=== PATIENT | female | born 1970 | race Caucasian/White ===

== ENCOUNTER → 2019-03-04 09:28 | Outpatient (CLI) | payer OTHER, SELFPAY ==
[2019-03-04 10:20] LABS: D Dimer < 200 ng/mL (<230)
[2019-03-04 10:21] LABS: Alanine Aminotransferase 26 IU/L (9-52); Albumin 4.7 g/dL (3.5-5.0); Albumin Globulin Ratio 1.5 (1.0-2.8); Alkaline Phosphatase 116 U/L (38-126); Aspartate Aminotransferase 26 IU/L (14-36); BUN Creatinine Ratio 15.7 (6-22); Bilirubin Total 0.6 mg/dL (0.2-1.3); Blood Urea Nitrogen 11 mg/dL (7-17); Calcium 9.8 mg/dL (8.4-10.2); Carbon Dioxide 27 mmol/L (22-32); Chloride 102 mmol/L (98-107); Estimated Glomerular Filt Rate > 60.0 mL/min (>60); Globulin 3.1 g/dL (1.7-4.1); Glucose 82 mg/dL (70-100); HEMOLYSIS < 15 (0-50); Potassium 4.1 mmol/L (3.4-5.1); Sodium 140 mmol/L (137-145); Total Protein 7.8 g/dL (6.3-8.2)
[2019-03-04 10:32] LABS: Troponin I < 0.012 ng/mL (0.01-0.034)
== END ==
PROVIDERS: PCP Internal Medicine; Visit Provider Physician Assistant
DX: M79.605 Pain in left leg (principal)
CPT/HCPCS: 36415; 80053; 84484; 85379

== ENCOUNTER → 2019-04-14 16:19 | Outpatient (ROUT) | payer OTHER, SELFPAY ==
[2019-04-14 16:26] LABS: Add Manual Diff / Slide Review NO; Basophils Absolute Auto 0 /uL (0-100); Basophils Percent Auto 0.9 % (0-2); Eosinophils Absolute Auto 200 /uL (0-450); Eosinophils Percent Auto 4.5 % (2-4); Hematocrit 41.5 % (36-46); Hemoglobin 14.4 g/dL (12.0-16.0); Lymphocytes Absolute Auto 1100 /uL (1100-4500); Lymphocytes Percent Auto 24.1 % (25-40); Mean Corpuscular HGB Conc 34.6 % (30-36); Mean Corpuscular Hemoglobin 30.9 PG (26-34); Mean Corpuscular Volume 89.3 fL (80-100); Monocytes Absolute Auto 200 /uL (0-900); Neutrophils Absolute Auto 3100 /uL (1500-7000); Neutrophils Percent Auto 65.5 % (50-75); Platelet Count 319 X10^3/uL (150-400); Red Blood Cell Count 4.65 X10^6/uL (4.0-5.2); Red Cell Distribution Width 13.2 % (11.6-14.8); White Blood Cell Count 4.7 X10^3/uL (4.5-11.0)
[2019-04-14 16:40] LABS: Alanine Aminotransferase 23 IU/L (9-52); Albumin 4.7 g/dL (3.5-5.0); Albumin Globulin Ratio 1.6 (1.0-2.8); Alkaline Phosphatase 108 U/L (38-126); Aspartate Aminotransferase 25 IU/L (14-36); BUN Creatinine Ratio 15.7 (6-22); Bilirubin Total 0.6 mg/dL (0.2-1.3); Blood Urea Nitrogen 11 mg/dL (7-17); Calcium 9.8 mg/dL (8.4-10.2); Carbon Dioxide 29 mmol/L (22-32); Chloride 99 mmol/L (98-107); Cholesterol 263 mg/dL (140-199); Estimated Glomerular Filt Rate > 60.0 mL/min (>60); Globulin 2.9 g/dL (1.7-4.1); Glucose 86 mg/dL (70-100); HDL Cholesterol 83 mg/dL (40-60); HEMOLYSIS < 15 (0-50); LDL Cholesterol Calculated 162 mg/dL (<100); Potassium 3.8 mmol/L (3.4-5.1); Sodium 137 mmol/L (137-145); Total Protein 7.6 g/dL (6.3-8.2); Triglycerides 92 mg/dL (35-150)
[2019-04-14 16:56] LABS: Vitamin D 25 Hydroxy (D3) 31.8 ng/mL (30.0-100.0)
[2019-04-14 17:10] LABS: TSH w/ Reflex to FT4 0.93 uIU/mL (0.47-4.68)
== END ==
PROVIDERS: PCP Internal Medicine; Visit Provider Internal Medicine
DX: Z13.21 Encounter for screening for nutritional disorder (principal); Z13.220 Encounter for screening for lipoid disorders; G43.709 Chronic migraine without aura, not intractable, without status migrainosus; F90.9 Attention-deficit hyperactivity disorder, unspecified type
CPT/HCPCS: 80053; 80061; 82306; 84443; 85025

== ENCOUNTER → 2019-05-05 18:08 | Outpatient (CLI) | payer OTHER, SELFPAY ==
--- NOTE | 2019-05-05 18:11 | DI.MG.S_ITS ---
BILATERAL DIGITAL SCREENING MAMMOGRAM 3D/2D WITH CAD: 05/05/2019 CLINICAL: Routine screening. Family history of breast cancer. Comparison is made to exams dated: 06/03/2013 mammogram, 06/02/2014 mammogram, and 06/18/2015 mammogram - [facility]. There are scattered fibroglandular elements in both breasts. Current study was also evaluated with a Computer Aided Detection (CAD) system. No significant masses, calcifications, or other findings are seen in either breast. There has been no significant interval change. IMPRESSION: NEGATIVE There is no mammographic evidence of malignancy. A 1 year screening mammogram is recommended. This exam was interpreted at Station ID: [id number]. NOTE: For mammograms, a report in lay terms will be sent to the patient. Approximately 15% of breast malignancies will not be visualized mammographically. In the management of a palpable breast mass, a negative mammogram must not discourage biopsy of a clinically suspicious lesion. Electronically Signed By: Angel corrales/zulema:05/05/2019 22:19:39 letter sent: Normal Exam ACR BI-RADS Category 1: Negative 3341F
== END ==
PROVIDERS: PCP Internal Medicine; Visit Provider Internal Medicine
DX: Z12.31 Encounter for screening mammogram for malignant neoplasm of breast (principal); Z80.3 Family history of malignant neoplasm of breast
CPT/HCPCS: 77063; 77067

== ENCOUNTER → 2019-06-16 11:55 | Outpatient (CLI) | payer OTHER, SELFPAY | PROVIDERS: PCP Internal Medicine; Visit Provider Otolaryngology | DX: Z01.818 Encounter for other preprocedural examination (principal) | CPT/HCPCS: 93005 ==

== ENCOUNTER → 2019-10-01 10:03 | Outpatient (CLI) | payer OTHER, SELFPAY ==
[2019-10-03 11:07] LABS: COVID19 Sendout Not Detected (Not Detected)
== END ==
PROVIDERS: PCP Internal Medicine; Visit Provider Physician Assistant
DX: R05 Cough (principal)
CPT/HCPCS: 87635

== ENCOUNTER → 2020-06-30 09:10 | Outpatient (CLI) | payer OTHER, MEDICAID, SELFPAY ==
--- NOTE | 2020-06-30 | DI.MG.S_ITS ---
BILATERAL DIGITAL SCREENING MAMMOGRAM 3D/2D WITH CAD: 06/30/2020 CLINICAL: Routine screening. Family history of breast cancer. Comparison is made to exams dated: 05/05/2019 mammogram - [facility], 06/18/2015 mammogram, and 06/02/2014 mammogram - [facility]. There are scattered fibroglandular elements in both breasts. Current study was also evaluated with a Computer Aided Detection (CAD) system. No significant masses, calcifications, or other findings are seen in either breast. There has been no significant interval change. IMPRESSION: NEGATIVE There is no mammographic evidence of malignancy. A 1 year screening mammogram is recommended. This exam was interpreted at Station ID: [id number]. NOTE: For mammograms, a report in lay terms will be sent to the patient. Approximately 15% of breast malignancies will not be visualized mammographically. In the management of a palpable breast mass, a negative mammogram must not discourage biopsy of a clinically suspicious lesion. Electronically Signed By: Duke north/zulema:07/02/2020 09:04:32 letter sent: Normal Exam ACR BI-RADS Category 1: Negative 3341F
== END ==
PROVIDERS: PCP Internal Medicine; Referring Provider Internal Medicine; Visit Provider Internal Medicine
DX: Z12.31 Encounter for screening mammogram for malignant neoplasm of breast (principal); Z80.3 Family history of malignant neoplasm of breast
CPT/HCPCS: 77063; 77067

== ENCOUNTER → 2021-02-11 14:25 | Outpatient (CLI) | payer OTHER, MEDICAID, SELFPAY ==
[2021-02-11 17:31] LABS: COVID19 -Nasal RAPID Negative (Negative)
== END ==
PROVIDERS: PCP Internal Medicine; Visit Provider Physician Assistant
DX: Z20.822 Contact with and (suspected) exposure to COVID-19 (principal)
CPT/HCPCS: 87635

== ENCOUNTER 2021-02-12 07:59 | Day surgery (SDC) | payer OTHER, MEDICAID, SELFPAY ==
--- NOTE | 2021-02-12 | PATH_ITS ---
[facility] Accession Number: [id number] . 01 Material submitted: . colon - EROSION @ 30 CM COLON . 01 Clinical history: . SDC . 02 Diagnosis: Colon, Erosion At 30 CM, Biopsy: Colonic mucosa with denuded surface epithelium and mild active inflammation with focal features suggestive of ischemia-type change. Please see comment. Negative for granulomas, dysplasia and malignancy. [facility] 02/15/2021 1355 Local . 02 Comment: The differential diagnosis for ischemia-type changes includes infection (i.e., enterohemorrhagic E. coli, C. difficile, etc.), true vascular ischemia, and ischemia due to trauma/prolapse. . 02 Electronically signed: . Justina Barkley MD, Pathologist NPI- [id number] . 01 Gross description: . EROSION @ 30 CM COLON: Received in formalin is 1 fragment(s) of siddiqui, soft tissue measuring 0.2 x 0.2 x 0.2 cm submitted entirely in 1 cassette(s) /ADELAIDE 02/13/2021 0653 Local . 02 Pathologist provided ICD-10: Z12.11 . 02 CPT . 663587 Performed at: 01 [facility] Cyt[facility] [address], [place], [place] [id number] MD Baldo Jaime MD Phone: [phone] Performed at: 02 [facility] [address] [place], [place] [id number] MD Justina Barkley MD Phone: [phone]
[2021-02-12 08:29] VITALS: BP 108/70; PULSE 78; RESP 18; TEMP 36.8; O2SAT 99; BMI 33.7
[2021-02-12] MEDS: SODIUM CHLORIDE 0.9% 1,000 ML 125 ML IV (08:42)
[2021-02-12] MEDS: fentaNYL 250 MCG/5 ML INJ IV (08:51)
[2021-02-12] MEDS: MIDAZOLAM 5 MG/5 ML VIAL IV (08:51)
--- NOTE | 2021-02-12 08:56 | PM.HP.1 ---
History of Present Illness History of Present Illness Date Patient Seen: 02/12/21 Time Patient Seen: 08:56 Chief complaint: WVC Patient History Comment: History of endometriosis abdominal hernia surgery total abdominal hysterectomy and laparoscopic treatment for endometriosis Family & Social History Tobacco & Substance use: Smoking Status Never smoker alcohol intake current alcohol intake frequency holiday/special occasion Substance Use Type does not use Meds Home Medications and Allergies Home Medications Medication Instructions Recorded Confirmed Type aripiprazole [Abilify] 2 mg PO 03/04/19 03/04/19 History estradiol 1 mg PO 03/04/19 03/04/19 History fexofenadine [Desi Allergy] PO 03/04/19 03/04/19 History fluoxetine 80 mg PO 03/04/19 03/04/19 History ibuprofen [Advil] PO 03/04/19 03/04/19 History indomethacin PO 03/04/19 03/04/19 History ketorolac [Toradol] 15 mg PO 03/04/19 03/04/19 History lamotrigine 200 mg PO 03/04/19 03/04/19 History lorazepam 0.5 mg PO PRN 03/04/19 03/04/19 History methylphenidate HCl [Concerta] PO 03/04/19 03/04/19 History omeprazole [Prilosec] 20 mg PO 03/04/19 03/04/19 History promethazine PO 03/04/19 03/04/19 History pseudoephedrine HCl [Sudafed 12 PO 03/04/19 03/04/19 History Hour] tizanidine 8 mg PO PRN 03/04/19 03/04/19 History Adderall XR 30 mg PO DAILY 02/12/21 02/12/21 History Allergies Allergy/AdvReac Type Severity Reaction Status Date / Time codeine Allergy Intermediate rash, Verified 02/12/21 08:12 nausea Penicillins Allergy Mild rash Verified 02/12/21 08:12 Sulfa (Sulfonamide Allergy Mild rash Verified 02/12/21 08:12 Antibiotics) Review of Systems Review of Systems ROS: Yes All systems reviewed with the patient and are negative except as otherwise documented Exam Vital Signs (past 8 hours): - 02/12/21 08:29 Temperature 98.2 F Pulse Rate 78 Respiratory Rate 18 Blood Pressure 108/70 Pulse Oximetry 99 Oxygen Delivery Method Room Air Const General: cooperative and comfortable Orientation: alert [facility] Head: normocephalic Ears: external ears normal Nose: external nose normal Face and sinus: normal facial exam Mouth: oral mucosae normal Eyes General: appearance normal, both eyes and all related structures Neck Neck: normal visual inspection Chest Chest: normal inspection of the chest Resp Effort & Inspection: normal respiratory effort Auscultation: clear to auscultation bilaterally Cardio Rate: regular rate Rhythm: regular rhythm Heart Sounds: no murmurs GI Inspection: normal to inspection Palpation: soft and No tender Auscultation: normal bowel sounds Skin General: no rashes or lesions noted and No jaundice Neuro General: patient alert and moves all extremities Cognition: normal cognition Speech: speech normal Extrem General: no pedal edema Psych Appearance: grossly normal Assessment & Plan Assessment & Plan narrative: Indicated for colon cancer screening. No family history of colon cancer. Colonoscopy is planned for today.
--- NOTE | 2021-02-12 08:58 | PM.PREOP ---
Pre-operative Note COVID-19 COVID-19 status: Negative Result date/Date tested (Pos, Neg/Pending): 02/11/21 Interval Note History & Physical reviewed/Exam performed by Physician: Yes Changes to H&P: No ASA Class (for procedural sedation): II
--- NOTE | 2021-02-12 09:32 | PM.OP.ENDO ---
Operative Date/Time/Diagnoses Date of procedure: 02/12/21 Time of procedure: 09:32 Pre-op diagnosis: Colon cancer screening Post-op diagnosis: same Procedure & Clinicians Study performed: Colonoscopy with biopsy Same procedure as scheduled: Yes Indications: Colon cancer screening Surgeon: Deepak Baez Procedure Notes SCOAP/Timeout: Done Procedure in detail: After the risks and benefits were explained, written and verbal informed consent was obtained. The patient was brought into the procedure room and placed into the left lateral decubitus position. Conscious sedation medication was applied as per nursing documentation. Digital rectal examination was accomplished. The scope was introduced into the patient and advanced under direct visualization to the cecum as identified by the appendiceal orifice and ileocecal valve. The scope was slowly withdrawn to carefully examine the mucosa for any defects or lesions. Comprehensive imaging was accomplished throughout the rectum including the dentate line. The colon was decompressed, the scope was then removed from the patient who tolerated the procedure well. Bowel prep adequate Sedation 7 mg Versed 175 mcg fentanyl Pediatric colonoscope Scope withdrawal time: 9 minutes Sedation minutes: 30 Complications: none Impression: The patient had a lengthy redundant somewhat tortuous colon. The scope had a tendency to loop. Abdominal pressure was required. No significant polyps mass lesions identified throughout. There was a small erosive change at around 30 cm from the anal verge and this was addressed with cold forceps. Endoscopic diagnosis 1. Redundant colon 2. Sigmoid colon erosion Post-procedure Plan for aftercare: 1. Await histopathology 2. Repeat colonoscopy will likely be suggested for 10 years time. Disposition: PACU
[2021-02-12 09:35] VITALS: BP 132/66; PULSE 74; RESP 17; TEMP 36.2; O2SAT 100
[2021-02-12 09:40] VITALS: BP 118/66; PULSE 62; RESP 16; O2SAT 100
[2021-02-12 09:45] VITALS: BP 116/77; PULSE 60; RESP 13; O2SAT 99
[2021-02-12 10:04] VITALS: BP 120/68; PULSE 70; RESP 13; O2SAT 100
== END 2021-02-12 10:33 | disposition home or self-care (01) ==
PROVIDERS: PCP Internal Medicine; Referring Provider Internal Medicine Gastroenterology; Visit Provider Internal Medicine Gastroenterology
PROC: 0DJD8ZZ Inspection of Lower Intestinal Tract, Via Natural or Artificial Opening Endoscopic (ICD-10-PCS; CPT 45378; principal; 2021-02-12 09:00)
DX: Z12.11 Encounter for screening for malignant neoplasm of colon (principal); K52.89 Other specified noninfective gastroenteritis and colitis
CPT/HCPCS: 45380; J2250; J3010

== ENCOUNTER → 2021-05-13 12:02 | Outpatient (CLI) | payer OTHER, MEDICAID, SELFPAY ==
[2021-05-13 15:12] LABS: Urine N gonorrhoeae NOT DETECTED
[2021-05-13 15:25] LABS: Urine Chlamydia NOT DETECTED
== END ==
PROVIDERS: PCP Internal Medicine; Visit Provider Physician Assistant
DX: R30.9 Painful micturition, unspecified (principal)
CPT/HCPCS: 87210; 87491; 87591

== ENCOUNTER → 2021-07-26 13:17 | Outpatient (CLI) | payer OTHER, SELFPAY ==
--- NOTE | 2021-07-26 | DI.MG.S_ITS ---
BILATERAL DIGITAL SCREENING MAMMOGRAM 3D/2D WITH CAD: 07/26/2021 CLINICAL: Routine screening. Family history of breast cancer. Comparison is made to exams dated: 06/30/2020 mammogram, 05/05/2019 mammogram - [facility], and 06/18/2015 mammogram - [facility]. There are scattered fibroglandular elements in both breasts. Current study was also evaluated with a Computer Aided Detection (CAD) system. No significant masses, calcifications, or other findings are seen in either breast. There has been no significant interval change. IMPRESSION: NEGATIVE There is no mammographic evidence of malignancy. A 1 year screening mammogram is recommended. This exam was interpreted at Station ID: [id number]. NOTE: For mammograms, a report in lay terms will be sent to the patient. Approximately 15% of breast malignancies will not be visualized mammographically. In the management of a palpable breast mass, a negative mammogram must not discourage biopsy of a clinically suspicious lesion. Electronically Signed By: Anya duran/zulema:07/26/2021 16:03:34 letter sent: Normal Exam ACR BI-RADS Category 1: Negative 3341F
== END ==
PROVIDERS: PCP Internal Medicine; Referring Provider Internal Medicine; Visit Provider Internal Medicine
DX: Z12.31 Encounter for screening mammogram for malignant neoplasm of breast (principal); Z80.3 Family history of malignant neoplasm of breast
CPT/HCPCS: 77063; 77067

== ENCOUNTER → 2022-01-13 06:40 | Outpatient (CLI) | payer OTHER, SELFPAY ==
--- NOTE | 2022-01-13 07:50 | DI.MRI.S_ITS ---
PROCEDURE: MR CERVICAL SPINE WO CON INDICATIONS: DDD/CERVICAL RADICULOPATHY TECHNIQUE: Noncontrast sagittal T1 spin echo and T2 fast spin echo, sagittal STIR, foraminal oblique sagittal T2 fast spin echo, and axial gradient echo or T2 fast spin echo through the cervical spine. COMPARISON: None. FINDINGS: Image quality: Degraded by susceptibility artifact related to cervical spine metallic fixation hardware. Alignment and Curvature: There is normal bony alignment. There is mild reversal normal cervical spine curvature. Bones: Postsurgical changes compatible C4-C5 and C6-C7 ACDF. Marrow demonstrates normal overall signal. Spinal Cord: Visualized spinal cord has normal size and signal. No cerebellar tonsillar herniation. Paraspinous Soft Tissues: No paravertebral masses. Prevertebral soft tissues are normal in thickness. C2-C3: Loss of disc signal. No central stenosis. No neural foraminal narrowing. No neural compression. C3-C4: Loss of disc signal. Mild, diffuse disc bulge. Mild right facet hypertrophy. No central stenosis. Mild right neural foraminal narrowing. No neural compression. C4-C5: Status post discectomy and fusion. No central stenosis. No neural foraminal narrowing. No neural compression. C5-C6: Loss of disc signal and height. Mild, diffuse disc bulge. Mild narrowing of the central canal. Moderate left uncovertebral joint hypertrophy. Mild to moderate left neural foraminal narrowing. No neural compression. C6-C7: Status post discectomy and fusion. Posterior endplate osteophytosis. Mild narrowing of the central canal. No neural foraminal narrowing. No neural compression. C7-T1: Normal appearance. IMPRESSION: 1. C4-C5 and C6-C7 ACDF. 2. Multilevel degenerative disc disease. 3. No severe central canal narrowing. 4. No severe neural foraminal narrowing. 5. No neural compression. Dictated by: Fartun Mcbride MD, PhD on 01/13/2022 at 13:55 Approved by: Fartun Mcbride MD, PhD on 01/13/2022 at 14:22
== END ==
PROVIDERS: PCP Internal Medicine; Referring Provider Family Medicine; Visit Provider Family Medicine
DX: M50.11 Cervical disc disorder with radiculopathy, high cervical region (principal); Z98.1 Arthrodesis status
CPT/HCPCS: 72141

== ENCOUNTER → 2022-08-12 16:54 | Outpatient (CLI) | payer OTHER, SELFPAY ==
--- NOTE | 2022-08-12 | DI.MG.S_ITS ---
BILATERAL DIGITAL SCREENING MAMMOGRAM 3D/2D WITH CAD: 08/12/2022 CLINICAL: Routine screening. Family history of breast cancer. Comparison is made to exams dated: 07/26/2021 mammogram, 06/30/2020 mammogram, and 05/05/2019 mammogram - [facility]. There are scattered areas of fibroglandular density in both breasts (category b / 25%-50% glandular tissue). Current study was also evaluated with a Computer Aided Detection (CAD) system. No significant masses, calcifications, or other findings are seen in either breast. There has been no significant interval change. IMPRESSION: NEGATIVE There is no mammographic evidence of malignancy. A 1 year screening mammogram is recommended. This exam was interpreted at Station ID: [id number]. NOTE: For mammograms, a report in lay terms will be sent to the patient. Approximately 15% of breast malignancies will not be visualized mammographically. In the management of a palpable breast mass, a negative mammogram must not discourage biopsy of a clinically suspicious lesion. Electronically Signed By: Angel corrales/zulema:08/13/2022 10:25:37 letter sent: Normal Exam ACR BI-RADS Category 1: Negative 3341F
== END ==
PROVIDERS: PCP Internal Medicine; Referring Provider Internal Medicine; Visit Provider Internal Medicine
DX: Z12.31 Encounter for screening mammogram for malignant neoplasm of breast (principal); Z80.3 Family history of malignant neoplasm of breast
CPT/HCPCS: 77063; 77067

== ENCOUNTER 2022-09-14 12:09 | Observation (INO) | payer OTHER, SELFPAY ==
[2022-09-14] VITALS (19 sets, daily range): BP systolic 138–180; BP diastolic 66–93; PULSE 64–99; RESP 14–24; TEMP 36.3–37.1; O2SAT 95–100; BMI 36.2
[2022-09-14 14:50] LABS: Add Manual Diff / Slide Review NO; Basophils Absolute Auto 100 /uL (0-100); Eosinophils Absolute Auto 100 /uL (0-450); Eosinophils Percent Auto 2.3 % (2-4); Hematocrit 41.4 % (36-46); Hemoglobin 14.4 g/dL (12.0-16.0); Lymphocytes Absolute Auto 1600 /uL (1100-4500); Mean Corpuscular HGB Conc 34.8 % (30-36); Mean Corpuscular Hemoglobin 30.7 PG (26-34); Monocytes Absolute Auto 300 /uL (0-900); Monocytes Percent Auto 5.5 % (3-14); Neutrophils Absolute Auto 3800 /uL (1500-7000); Neutrophils Percent Auto 64.2 % (50-75); Platelet Count 290 X10^3/uL (150-400); Red Cell Distribution Width 13.1 % (11.6-14.8)
--- NOTE | 2022-09-14 15:06 | DI.US.S_ITS ---
PROCEDURE: US ABDOMEN LIMITED INDICATIONS: RUQ PAIN TECHNIQUE: Real-time focused scanning was performed of the abdomen, with image documentation. COMPARISON: [facility], CT, CT ABDOMEN PELVIS W CON, 09/14/2022, 16:00. FINDINGS: The gallbladder is nearly filled with stones, which do not appear mobile. The gallbladder wall is not thickened. No pericholecystic fluid is seen. There is a positive sonographic Sethi sign. Minimal biliary dilatation is seen, measuring up to 7.5 mm. The liver is normal in size and demonstrates no suspicious lesions. No significant pancreatic abnormality is seen on these images. IMPRESSION: Suspicion for cholecystitis, with numerous gallstones and a positive sonographic Sethi sign. Minimal biliary dilatation is seen, 7.5 mm. Dictated by: Waqar Adan M.D. on 09/14/2022 at 15:58 Approved by: Waqar Adan M.D. on 09/14/2022 at 15:59
--- NOTE | 2022-09-14 15:07 | ED.ABDPAIN ---
HPI - Abdominal Pain <STEFFI Davies - Last Filed: 09/14/22 18:45> General Chief Complaint: Abdominal Pain Stated Complaint: UPPER ABD PAIN Time Seen by Provider: 09/14/22 14:58 Mode of arrival: Family Vehicle History of Present Illness HPI narrative: This is a 52 year female presents to the emergency department with worsening right upper quadrant pain over the last 3 days. States that she is concerned about cholecystitis, has not had abdominal surgery in the past but reports 3 days of worsening right upper quadrant pain, she was seen at the [facility] 2 days ago, her lab work reportedly revealed elevated liver enzymes, an abdominal ultrasound was ordered but not completed yet. Patient denies fever and chills, states that 2 days ago she had nausea vomiting, has not had a bowel movement in 3 days. Related Data Home Medications Medication Instructions Recorded Confirmed aripiprazole [Abilify] 2 mg PO QAM 03/04/19 09/14/22 estradiol 1 mg PO QAM 03/04/19 09/14/22 indomethacin PO 03/04/19 09/02/22 ketorolac [Toradol] 15 mg PO PRN Migraine Headache 03/04/19 09/02/22 lamotrigine 200 mg PO QPM 03/04/19 09/02/22 lorazepam 0.5 mg PO PRN Anxiety 03/04/19 09/02/22 methylphenidate HCl [Concerta] 35 mg PO QAM 03/04/19 09/14/22 omeprazole [Prilosec] 20 mg PO QAM 03/04/19 09/14/22 fluoxetine 60 mg PO QAM 09/02/22 09/14/22 methylphenidate HCl 10 mg tablet 10 mg PO DAILY 09/02/22 09/02/22 (Ritalin) tizanidine 8 mg PO QPM Sleep 09/02/22 09/14/22 indomethacin 25 mg capsule 25 mg PO PRN PRN Migraine Headache 09/14/22 09/14/22 Allergies Allergy/AdvReac Type Severity Reaction Status Date / Time codeine Allergy Intermediate rash, Verified 09/14/22 12:24 nausea Penicillins Allergy Mild rash Verified 09/14/22 12:24 Sulfa (Sulfonamide Allergy Mild rash Verified 09/14/22 12:24 Antibiotics) Review of Systems <STEFFI Davies - Last Filed: 09/14/22 18:45> Review of Systems ROS Unobtainable: All systems reviewed & are unremarkable except as noted in HPI and below Patient History <STEFFI Davies - Last Filed: 09/14/22 18:45> Medical History Vaginal irritation Surgical History H/O inguinal hernia repair History of hysterectomy with bilateral oophorectomy Social History household members: none Smoking Status: Never smoker alcohol intake: current Smoking Status: Never smoker alcohol intake frequency: a few times a week Substance Use Type: does not use Exam <STEFFI Davies - Last Filed: 09/14/22 18:45> Narrative Exam Narrative: Reviewed vitals signs and nursing notes. General: cooperative, in no acute distress, well groomed, uncomfortable, afebrile HEENT: symmetrical facial expressions, moist mucous membranes, neck is supple CV: regular rate and rhythm, warm extremities Respiratory: Without abnormal breath sounds, normal work of breathing, without tachypnea, hypoxia. GI: abdomen soft, patient is significantly tender to the right upper quadrant, positive Sethi's, does not have referred pain, no CVA tenderness bilaterally, abdomen is soft and without abnormal bowel tones, no rebound tenderness, nondistended. MSK: moves all extremities, neurovascularly intact, no weakness, normal tone Skin: brisk capillary refill, without rash or wound Neuro: normal speech and cognition, A&O x3, clear speech Initial Vital Signs Initial Vital Signs: Vital Signs Temperature 98.6 F 09/14/22 12:20 Pulse Rate 99 H 09/14/22 12:20 Respiratory Rate 16 09/14/22 12:20 Blood Pressure 171/74 H 09/14/22 12:20 Pulse Oximetry 100 09/14/22 12:20 Oxygen Delivery Method Room Air 09/14/22 12:20 <Arminda Alvarez DO - Last Filed: 09/15/22 08:33> Initial Vital Signs Initial Vital Signs: Vital Signs Temperature 98.6 F 09/14/22 12:20 Pulse Rate 99 H 09/14/22 12:20 Respiratory Rate 16 09/14/22 12:20 Blood Pressure 171/74 H 09/14/22 12:20 Pulse Oximetry 100 09/14/22 12:20 Oxygen Delivery Method Room Air 09/14/22 12:20 Course <STEFFI Davies - Last Filed: 09/14/22 18:45> Orders Ordered: ED Orders 09/15/22 06:02 Basic Metabolic Panel Routine Complete Blood Count AUTO DIFF Routine Hepatic (Liver) Panel Routine Acetaminophen (Acetaminophen 325 Mg Tablet) 975 mg PO Q6H [facility] Last Admin: 09/15/22 02:31 Dose: Not Given Documented By: Admin: 09/14/22 20:53 Dose: 975 mg Documented By: PAM Enoxaparin Sodium (Enoxaparin 40 Mg/0.4 Ml Syringe) 40 mg SUBCUT DAILY [facility] Last Admin: 09/15/22 08:25 Dose: 40 mg Documented By: TANISHA Hydromorphone HCl (Hydromorphone 0.5 Mg Inj) 0.5 mg IV PRN PRN PRN Reason: pain Last Admin: 09/15/22 02:08 Dose: 0.5 mg Documented By: GRAEME Hydromorphone HCl (Hydromorphone 0.5 Mg Inj) 1 mg IV Q2H PRN PRN Reason: Breakthrough Pain Metronidazole (Flagyl) 500 mg in 100 mls @ 100 mls/hr IV Q8H [facility] Last Admin: 09/15/22 08:24 Dose: 100 mls/hr Documented By: Infusion: 09/15/22 08:24 Dose: 0 mls/hr Documented By: Admin: 09/15/22 01:57 Dose: 100 mls/hr Documented By: Infusion: 09/14/22 18:32 Dose: 0 mls/hr Documented By: Admin: 09/14/22 17:31 Dose: 100 mls/hr Documented By: RAMIRO Ciprofloxacin (Cipro) 400 mg in 200 mls @ 200 mls/hr IV Q12H [facility] Last Admin: 09/14/22 21:58 Dose: 200 mls/hr Documented By: PAM Ibuprofen (Ibuprofen 600 Mg Tablet) 600 mg PO Q6H [facility] Last Admin: 09/15/22 02:31 Dose: Not Given Documented By: Admin: 09/14/22 20:54 Dose: 600 mg Documented By: PAM Lorazepam (Lorazepam 0.5 Mg Tablet) 1 mg PO QID PRN PRN Reason: sleep or anxiety Naloxone HCl (Naloxone 0.4 Mg/Ml Vial) 0.2 mg IV Q2MIN PRN PRN Reason: Opiate Reversal Ondansetron HCl (Ondansetron 4 Mg/2 Ml Inj) 4 mg IV NOW PRN PRN Reason: Nausea And Vomiting Ondansetron HCl (Ondansetron 4 Mg Odt) 4 mg PO Q4H PRN PRN Reason: Nausea And Vomiting Oxycodone HCl (Oxycodone Ir 5 Mg Tablet) 5 mg PO Q3H PRN PRN Reason: Pain, Moderate (4-6) Oxycodone HCl (Oxycodone Ir 10 Mg Tablet) 10 mg PO Q3H PRN PRN Reason: Pain, Severe (7-10) Discontinued Medications Acetaminophen (Acetaminophen 325 Mg Tablet) 975 mg PO Q6H [facility] Last Admin: 09/14/22 21:27 Dose: Not Given Documented By: GRAEME Diphenhydramine HCl (Diphenhydramine 50 Mg/Ml Vial) 25 mg IV NOW ONE Stop: 09/14/22 16:18 Last Admin: 09/14/22 16:23 Dose: 25 mg Documented By: RAMIRO Hydromorphone HCl (Hydromorphone 0.5 Mg Inj) 0.5 mg IV NOW ONE Stop: 09/14/22 16:34 Last Admin: 09/14/22 17:32 Dose: 0.5 mg Documented By: RAMIRO Sodium Chloride (Normal Saline 0.9%) 1,000 mls @ 1,000 mls/hr IV BOLUS ONE Stop: 09/14/22 16:05 Last Infusion: 09/14/22 18:52 Dose: 0 mls/hr Documented By: Admin: 09/14/22 15:24 Dose: 1,000 mls/hr Documented By: RAMIRO Ceftriaxone Sodium 1,000 mg/ (Sodium Chloride) 100 mls @ 200 mls/hr IV NOW ONE Stop: 09/14/22 16:34 Last Admin: 09/14/22 20:51 Dose: 200 mls/hr Documented By: PAM Ciprofloxacin (Cipro) 400 mg in 200 mls @ 200 mls/hr IV Q12H [facility] Last Admin: 09/14/22 21:27 Dose: Not Given Documented By: AM Ceftriaxone Sodium 1,000 mg/ (Sodium Chloride) 100 mls @ 200 mls/hr IV NOW ONE Stop: 09/14/22 20:44 Last Admin: 09/14/22 21:08 Dose: Not Given Documented By: PAM Ibuprofen (Ibuprofen 600 Mg Tablet) 600 mg PO Q6H [facility] Last Admin: 09/14/22 21:27 Dose: Not Given Documented By: AM Ketorolac Tromethamine (Ketorolac 30 Mg/Ml Vial) 15 mg IV NOW ONE Stop: 09/14/22 15:07 Last Admin: 09/14/22 15:25 Dose: 15 mg Documented By: RAMIRO Ondansetron HCl (Ondansetron 4 Mg Odt) 4 mg PO NOW PRN PRN Reason: Nausea And Vomiting Vital Signs Vital signs: Vital Signs - 8 hr 09/14/22 12:20 09/14/22 13:46 09/14/22 13:48 Temperature 98.6 F Pulse Rate 99 H 91 H 89 Respiratory Rate 16 20 21 Blood Pressure 171/74 H Pulse Oximetry 100 95 99 Oxygen Delivery Method Room Air 09/14/22 13:48 09/14/22 14:00 09/14/22 14:01 Temperature Pulse Rate 86 83 Respiratory Rate 17 18 Blood Pressure 170/80 H Pulse Oximetry 99 99 Oxygen Delivery Method 09/14/22 14:01 09/14/22 14:30 09/14/22 14:30 Temperature Pulse Rate 86 Respiratory Rate 24 Blood Pressure 154/67 H 168/91 H Pulse Oximetry 99 Oxygen Delivery Method 09/14/22 15:00 09/14/22 15:00 Temperature Pulse Rate 80 Respiratory Rate 18 Blood Pressure 163/75 H Pulse Oximetry 99 Oxygen Delivery Method <Arminda Alvarez, - Last Filed: 09/15/22 08:33> Orders Ordered: ED Orders 09/15/22 06:02 Basic Metabolic Panel Routine Complete Blood Count AUTO DIFF Routine Hepatic (Liver) Panel Routine Acetaminophen (Acetaminophen 325 Mg Tablet) 975 mg PO Q6H [facility] Last Admin: 09/15/22 02:31 Dose: Not Given Documented By: Admin: 09/14/22 20:53 Dose: 975 mg Documented By: PAM Enoxaparin Sodium (Enoxaparin 40 Mg/0.4 Ml Syringe) 40 mg SUBCUT DAILY [facility] Last Admin: 09/15/22 08:25 Dose: 40 mg Documented By: TANISHA Hydromorphone HCl (Hydromorphone 0.5 Mg Inj) 0.5 mg IV PRN PRN PRN Reason: pain Last Admin: 09/15/22 02:08 Dose: 0.5 mg Documented By: GRAEME Hydromorphone HCl (Hydromorphone 0.5 Mg Inj) 1 mg IV Q2H PRN PRN Reason: Breakthrough Pain Metronidazole (Flagyl) 500 mg in 100 mls @ 100 mls/hr IV Q8H [facility] Last Admin: 09/15/22 08:24 Dose: 100 mls/hr Documented By: Infusion: 09/15/22 08:24 Dose: 0 mls/hr Documented By: Admin: 09/15/22 01:57 Dose: 100 mls/hr Documented By: Infusion: 09/14/22 18:32 Dose: 0 mls/hr Documented By: Admin: 09/14/22 17:31 Dose: 100 mls/hr Documented By: RAMIRO Ciprofloxacin (Cipro) 400 mg in 200 mls @ 200 mls/hr IV Q12H [facility] Last Admin: 09/14/22 21:58 Dose: 200 mls/hr Documented By: PAM Ibuprofen (Ibuprofen 600 Mg Tablet) 600 mg PO Q6H [facility] Last Admin: 09/15/22 02:31 Dose: Not Given Documented By: Admin: 09/14/22 20:54 Dose: 600 mg Documented By: PAM Lorazepam (Lorazepam 0.5 Mg Tablet) 1 mg PO QID PRN PRN Reason: sleep or anxiety Naloxone HCl (Naloxone 0.4 Mg/Ml Vial) 0.2 mg IV Q2MIN PRN PRN Reason: Opiate Reversal Ondansetron HCl (Ondansetron 4 Mg/2 Ml Inj) 4 mg IV NOW PRN PRN Reason: Nausea And Vomiting Ondansetron HCl (Ondansetron 4 Mg Odt) 4 mg PO Q4H PRN PRN Reason: Nausea And Vomiting Oxycodone HCl (Oxycodone Ir 5 Mg Tablet) 5 mg PO Q3H PRN PRN Reason: Pain, Moderate (4-6) Oxycodone HCl (Oxycodone Ir 10 Mg Tablet) 10 mg PO Q3H PRN PRN Reason: Pain, Severe (7-10) Discontinued Medications Acetaminophen (Acetaminophen 325 Mg Tablet) 975 mg PO Q6H [facility] Last Admin: 09/14/22 21:27 Dose: Not Given Documented By: AM Diphenhydramine HCl (Diphenhydramine 50 Mg/Ml Vial) 25 mg IV NOW ONE Stop: 09/14/22 16:18 Last Admin: 09/14/22 16:23 Dose: 25 mg Documented By: RAMIRO Hydromorphone HCl (Hydromorphone 0.5 Mg Inj) 0.5 mg IV NOW ONE Stop: 09/14/22 16:34 Last Admin: 09/14/22 17:32 Dose: 0.5 mg Documented By: RAMIRO Sodium Chloride (Normal Saline 0.9%) 1,000 mls @ 1,000 mls/hr IV BOLUS ONE Stop: 09/14/22 16:05 Last Infusion: 09/14/22 18:52 Dose: 0 mls/hr Documented By: Admin: 09/14/22 15:24 Dose: 1,000 mls/hr Documented By: RAMIRO Ceftriaxone Sodium 1,000 mg/ (Sodium Chloride) 100 mls @ 200 mls/hr IV NOW ONE Stop: 09/14/22 16:34 Last Admin: 09/14/22 20:51 Dose: 200 mls/hr Documented By: PAM Ciprofloxacin (Cipro) 400 mg in 200 mls @ 200 mls/hr IV Q12H [facility] Last Admin: 09/14/22 21:27 Dose: Not Given Documented By: GRAEME Ceftriaxone Sodium 1,000 mg/ (Sodium Chloride) 100 mls @ 200 mls/hr IV NOW ONE Stop: 09/14/22 20:44 Last Admin: 09/14/22 21:08 Dose: Not Given Documented By: PAM Ibuprofen (Ibuprofen 600 Mg Tablet) 600 mg PO Q6H [facility] Last Admin: 09/14/22 21:27 Dose: Not Given Documented By: GRAEME Ketorolac Tromethamine (Ketorolac 30 Mg/Ml Vial) 15 mg IV NOW ONE Stop: 09/14/22 15:07 Last Admin: 09/14/22 15:25 Dose: 15 mg Documented By: RAMIRO Ondansetron HCl (Ondansetron 4 Mg Odt) 4 mg PO NOW PRN PRN Reason: Nausea And Vomiting Vital Signs Vital signs: Vital Signs - 8 hr 09/14/22 12:20 09/14/22 13:46 09/14/22 13:48 Temperature 98.6 F Pulse Rate 99 H 91 H 89 Respiratory Rate 16 20 21 Blood Pressure 171/74 H Pulse Oximetry 100 95 99 Oxygen Delivery Method Room Air 09/14/22 13:48 09/14/22 14:00 09/14/22 14:01 Temperature Pulse Rate 86 83 Respiratory Rate 17 18 Blood Pressure 170/80 H Pulse Oximetry 99 99 Oxygen Delivery Method 09/14/22 14:01 09/14/22 14:30 09/14/22 14:30 Temperature Pulse Rate 86 Respiratory Rate 24 Blood Pressure 154/67 H 168/91 H Pulse Oximetry 99 Oxygen Delivery Method 09/14/22 15:00 09/14/22 15:00 Temperature Pulse Rate 80 Respiratory Rate 18 Blood Pressure 163/75 H Pulse Oximetry 99 Oxygen Delivery Method MDM - Abdominal Pain <STEFFI Davies - Last Filed: 09/14/22 18:45> Lab Data 09/15/22 06:02 09/15/22 06:02 Labs: Lab Results 09/14/22 09/14/22 09/14/22 Range/Units 12:42 14:40 14:40 WBC 6.0 (4.5-11.0) X10^3/uL RBC 4.70 (4.0-5.2) X10^6/uL Hgb 14.4 (12.0-16.0) g/dL Hct 41.4 (36-46) % MCV 88.0 (80-100) fL MCH 30.7 (26-34) PG MCHC 34.8 (30-36) % RDW 13.1 (11.6-14.8) % Plt Count 290 (150-400) X10^3/uL Neut % (Auto) 64.2 (50-75) % Lymph % (Auto) 27.0 (25-40) % Kidder % (Auto) 5.5 (3-14) % Eos % (Auto) 2.3 (2-4) % Baso % (Auto) 1.0 (0-2) % Neut # (Auto) 3800 (3315-2756) /uL Lymph # (Auto) 1600 (5552-0046) /uL Kidder # (Auto) 300 (0-900) /uL Eos # (Auto) 100 (0-450) /uL Baso # (Auto) 100 (0-100) /uL Sodium 135 L (137-145) mmol/L Potassium 3.5 (3.4-5.1) mmol/L Chloride 98 (98-107) mmol/L Carbon Dioxide 28 (22-32) mmol/L BUN 8 (7-17) mg/dL Creatinine 0.60 (0.52-1.04) mg/dL Estimated GFR > 60 (>60) mL/min BUN/Creatinine Ratio 13.3 (6-22) Glucose 97 (70-100) mg/dL Lactate (0.7-2.1) mmol/L Calcium 9.8 (8.4-10.2) mg/dL Total Bilirubin 1.4 H (0.2-1.3) mg/dL AST 292 H (14-36) IU/L ALT 592 H (<35) IU/L Alkaline Phosphatase 528 H (38-126) U/L C-Reactive Protein (<1.0) mg/dL Total Protein 8.4 H (6.3-8.2) g/dL Albumin 4.6 (3.5-5.0) g/dL Globulin 3.8 (1.7-4.1) g/dL Albumin/Globulin Ratio 1.2 (1.0-2.8) Amylase (30-110) U/L Lipase 125 (23-300) U/L Urine RBC 0-1/hpf (0-5/HPF) Urine WBC 0-1/hpf (0-5/HPF) Urine Bacteria Occasional (0-1) (None) Ur Culture Indicated? Cult not indicated 09/14/22 09/14/22 09/14/22 Range/Units 14:40 14:40 14:40 WBC (4.5-11.0) X10^3/uL RBC (4.0-5.2) X10^6/uL Hgb (12.0-16.0) g/dL Hct (36-46) % MCV (80-100) fL MCH (26-34) PG MCHC (30-36) % RDW (11.6-14.8) % Plt Count (150-400) X10^3/uL Neut % (Auto) (50-75) % Lymph % (Auto) (25-40) % Kidder % (Auto) (3-14) % Eos % (Auto) (2-4) % Baso % (Auto) (0-2) % Neut # (Auto) (6222-3010) /uL Lymph # (Auto) (2551-7670) /uL Kidder # (Auto) (0-900) /uL Eos # (Auto) (0-450) /uL Baso # (Auto) (0-100) /uL Sodium (137-145) mmol/L Potassium (3.4-5.1) mmol/L Chloride (98-107) mmol/L Carbon Dioxide (22-32) mmol/L BUN (7-17) mg/dL Creatinine (0.52-1.04) mg/dL Estimated GFR (>60) mL/min BUN/Creatinine Ratio (6-22) Glucose (70-100) mg/dL Lactate 1.1 (0.7-2.1) mmol/L Calcium (8.4-10.2) mg/dL Total Bilirubin (0.2-1.3) mg/dL AST (14-36) IU/L ALT (<35) IU/L Alkaline Phosphatase (38-126) U/L C-Reactive Protein 1.3 H (<1.0) mg/dL Total Protein (6.3-8.2) g/dL Albumin (3.5-5.0) g/dL Globulin (1.7-4.1) g/dL Albumin/Globulin Ratio (1.0-2.8) Amylase 54 (30-110) U/L Lipase (23-300) U/L Urine RBC (0-5/HPF) Urine WBC (0-5/HPF) Urine Bacteria (None) Ur Culture Indicated? Point of care testing: Point of Care Testing Test Results Negative Urine Dip Bedside Urine Glucose Negative Bedside Urine Bilirubin - Negative Bedside Urine Ketone - Negative Urine Specific Mobile 1.000 Bedside Urine Occult Blood - Negative Bedside Urine pH 6.0 Bedside Urine Protein - Negative Bedside Urine Urobilinogen - Negative Bedside Urine Nitrite - Negative Bedside Urine Leukocytes - Negative Esterase Imaging Data US - abdomen: Radiologist's Impression: PROCEDURE: US ABDOMEN LIMITED ? INDICATIONS:? RUQ PAIN ? TECHNIQUE:? Real-time focused scanning was performed of the abdomen, with image documentation.? ? COMPARISON:? [facility], CT, CT ABDOMEN PELVIS W CON, 09/14/2022, 16:00. ? FINDINGS:? The gallbladder is nearly filled with stones, which do not appear mobile.? The gallbladder wall is not thickened.? No pericholecystic fluid is seen.? There is a positive sonographic Sethi sign. ? Minimal biliary dilatation is seen, measuring up to 7.5 mm. ? The liver is normal in size and demonstrates no suspicious lesions. ? No significant pancreatic abnormality is seen on these images.? ? ? IMPRESSION:? Suspicion for cholecystitis, with numerous gallstones and a positive sonographic Sethi sign. ? Minimal biliary dilatation is seen, 7.5 mm. ? Dictated by: Waqar Adan M.D. on 09/14/2022 at 15:58 ? ? Approved by: Waqar Adan M.D. on 09/14/2022 at 15:59 ? CT scan - abdomen/pelvis: Radiologist's Impression: PROCEDURE:? CT ABDOMEN PELVIS W CON ? INDICATIONS:? Right upper quadrant pain and tenderness ? TECHNIQUE:? After the administration of oral and IV contrast, axial sections were acquired from the lung bases to the pubic symphysis.? Coronal and sagittal reformats were performed.? For radiation dose reduction, the following was used:? automated exposure control, adjustment of mA and/or kV according to patient size. ? COMPARISON:? [facility], US, US ABDOMEN LIMITED, 09/14/2022, 16:18. ? FINDINGS:? Image quality:? Excellent.? ? Lung bases:? Unremarkable.? ? Heart:? No significant findings. ? ? ABDOMEN: Liver:? Unremarkable.? ? Gallbladder:? Mild gallbladder wall hyperenhancement can be seen.? No significant pericholecystic fluid can be seen.? No stones are seen by CT. Biliary ducts:? The common bile duct is mildly dilated at 8 mm. Pancreas:? Unremarkable.? ? Spleen:? There is a simple cyst seen involving the medial spleen that measures up to 3.7 cm. Incidental note is made of an accessory splenule along the hilum of the primary spleen. Adrenal Glands:? Unremarkable.? ? Kidneys and Ureters:? Unremarkable.? ? ? Stomach and Bowel:? Stomach, small bowel loops, and colon are unremarkable.? A normal appendix is incidentally noted.? Peritoneum:? No abnormal intraperitoneal fluid.? No free air.? ? Ventral Wall: ? No hernia.? Abdominal Nodes:? No retroperitoneal or mesenteric adenopathy by size criteria.? Vessels:? Aorta and inferior vena cava are normal in size.? ? PELVIS: Pelvic Organs: This patient is status post hysterectomy. No adnexal masses are seen.? Bladder:? Unremarkable.? ? Pelvic Nodes: No enlarged lymph nodes.? Miscellaneous: No inguinal hernias are seen. ? ? ? Bones:? Focal L4-L5 and L5-S1 degenerative change can be seen.? Milder degenerative changes are seen elsewhere.? ? ? IMPRESSION:? ? Mild gallbladder wall hyperenhancement seen. ? Mild biliary ductal dilatation. ? ? Additional findings:? Simple splenic cyst Accessory splenule Normal appendix Hysterectomy Focal lower lumbar spine degenerative change ? Dictated by: Waqar Adan M.D. on 09/14/2022 at 15:59 ? ? Approved by: Waqar Adan M.D. on 09/14/2022 at 16:02 ? MDM Narrative Medical decision making narrative: Chief Complaint: Right upper quadrant pain Independent historian: Patient Differential diagnoses include but are not limited to: Small-bowel obstruction, cholecystitis, cholelithiasis, ascending cholangitis, acute hepatitis, duodenal ulcer, perforated viscus, constipation, ACS, GERD/reflux I have independently reviewed the patient's vital signs and nursing notes as well as prior records if available. Pertinent lab findings reviewed: No leukocytosis or anemia, CMP shows grossly elevated AST, ALT, alkaline phosphatase and total bilirubin, CRP is 1.3, most prior liver enzymes from 04/14/2019 and are not elevated. UA with micro is negative for infection, amylase and lipase are not elevated. Pertinent Imaging reviewed: Abdominal ultrasound shows a gallbladder filled with stones, no pericholecystic fluid, suspicion for cholecystitis numerous gallstones positive sonographic Sethi sign CT abdomen and pelvis with contrast Patient came back feeling itchy after her CT scan, ordered IV Benadryl, she is had a CT with IV contrast in the past but did not have a reaction at that time, she does not have hives, shortness of breath, chest pain, difficulty breathing or wheezing. Course of care: Ordered pain medication, patient drove herself here, ordered 1 L normal saline and ultrasound patient's abdomen 1630 ultrasound completed, paint laboratory technician reports that her gallbladder is stone-filled, does not have wall thickening, she was not able to see if it was obstructed Dr. Eli from General surgery has been consulted, awaiting call back Spoke with her about patient's presentation, she accepts patient for admission for likely cholecystectomy tomorrow. Patient provided her previous lab work which shows AST of 460, alk phosphatase of 334, total bilirubin of 2.8 and ALT of 430, these values were from her lab work yesterday and today her numbers have markedly improved especially her total bilirubin at 1.4 today. She accepts patient for admission. Patient was informed of lab and imaging results, pertinent diagnoses, consulting physicians, and treatment plan. I have spoken with the patient in regard to admission, patient understands and agrees. I have communicated the patient's evaluation and treatment plan to the admitting physician who agrees with admission. All questions answered at this time. Social considerations that may affect disposition: none Questions are addressed and there is agreement with the plan and for follow-up. MIPS: This encounter doesn't have any diagnosis' associated with MIPS criteria. <Arminda Alvarez, DO - Last Filed: 09/15/22 08:33> Lab Data Labs: Lab Results 09/14/22 09/14/22 09/14/22 Range/Units 12:42 14:40 14:40 WBC 6.0 (4.5-11.0) X10^3/uL RBC 4.70 (4.0-5.2) X10^6/uL Hgb 14.4 (12.0-16.0) g/dL Hct 41.4 (36-46) % MCV 88.0 (80-100) fL MCH 30.7 (26-34) PG MCHC 34.8 (30-36) % RDW 13.1 (11.6-14.8) % Plt Count 290 (150-400) X10^3/uL Neut % (Auto) 64.2 (50-75) % Lymph % (Auto) 27.0 (25-40) % Kidder % (Auto) 5.5 (3-14) % Eos % (Auto) 2.3 (2-4) % Baso % (Auto) 1.0 (0-2) % Neut # (Auto) 3800 (7206-3843) /uL Lymph # (Auto) 1600 (7799-5210) /uL Kidder # (Auto) 300 (0-900) /uL Eos # (Auto) 100 (0-450) /uL Baso # (Auto) 100 (0-100) /uL Sodium 135 L (137-145) mmol/L Potassium 3.5 (3.4-5.1) mmol/L Chloride 98 (98-107) mmol/L Carbon Dioxide 28 (22-32) mmol/L BUN 8 (7-17) mg/dL Creatinine 0.60 (0.52-1.04) mg/dL Estimated GFR > 60 (>60) mL/min BUN/Creatinine Ratio 13.3 (6-22) Glucose 97 (70-100) mg/dL Lactate (0.7-2.1) mmol/L Calcium 9.8 (8.4-10.2) mg/dL Total Bilirubin 1.4 H (0.2-1.3) mg/dL AST 292 H (14-36) IU/L ALT 592 H (<35) IU/L Alkaline Phosphatase 528 H (38-126) U/L C-Reactive Protein (<1.0) mg/dL Total Protein 8.4 H (6.3-8.2) g/dL Albumin 4.6 (3.5-5.0) g/dL Globulin 3.8 (1.7-4.1) g/dL Albumin/Globulin Ratio 1.2 (1.0-2.8) Amylase (30-110) U/L Lipase 125 (23-300) U/L Urine RBC 0-1/hpf (0-5/HPF) Urine WBC 0-1/hpf (0-5/HPF) Urine Bacteria Occasional (0-1) (None) Ur Culture Indicated? Cult not indicated 09/14/22 09/14/22 09/14/22 Range/Units 14:40 14:40 14:40 WBC (4.5-11.0) X10^3/uL RBC (4.0-5.2) X10^6/uL Hgb (12.0-16.0) g/dL Hct (36-46) % MCV (80-100) fL MCH (26-34) PG MCHC (30-36) % RDW (11.6-14.8) % Plt Count (150-400) X10^3/uL Neut % (Auto) (50-75) % Lymph % (Auto) (25-40) % Kidder % (Auto) (3-14) % Eos % (Auto) (2-4) % Baso % (Auto) (0-2) % Neut # (Auto) (5110-6581) /uL Lymph # (Auto) (1928-5196) /uL Kidder # (Auto) (0-900) /uL Eos # (Auto) (0-450) /uL Baso # (Auto) (0-100) /uL Sodium (137-145) mmol/L Potassium (3.4-5.1) mmol/L Chloride (98-107) mmol/L Carbon Dioxide (22-32) mmol/L BUN (7-17) mg/dL Creatinine (0.52-1.04) mg/dL Estimated GFR (>60) mL/min BUN/Creatinine Ratio (6-22) Glucose (70-100) mg/dL Lactate 1.1 (0.7-2.1) mmol/L Calcium (8.4-10.2) mg/dL Total Bilirubin (0.2-1.3) mg/dL AST (14-36) IU/L ALT (<35) IU/L Alkaline Phosphatase (38-126) U/L C-Reactive Protein 1.3 H (<1.0) mg/dL Total Protein (6.3-8.2) g/dL Albumin (3.5-5.0) g/dL Globulin (1.7-4.1) g/dL Albumin/Globulin Ratio (1.0-2.8) Amylase 54 (30-110) U/L Lipase (23-300) U/L Urine RBC (0-5/HPF) Urine WBC (0-5/HPF) Urine Bacteria (None) Ur Culture Indicated? Point of care testing: Point of Care Testing Test Results Negative Urine Dip Bedside Urine Glucose Negative Bedside Urine Bilirubin - Negative Bedside Urine Ketone - Negative Urine Specific Mobile 1.000 Bedside Urine Occult Blood - Negative Bedside Urine pH 6.0 Bedside Urine Protein - Negative Bedside Urine Urobilinogen - Negative Bedside Urine Nitrite - Negative Bedside Urine Leukocytes - Negative Esterase ECG Data Attestation: I personally reviewed and interpreted this ECG as follows: Interpretation: Sinus rhythm rate 85 W[place] 154 QRS 88 QTC of 461. No acute ST elevation or depression. Patient has prior from 06/16/2019 which appears similar. Discharge Plan Departure Patient Disposition: Admitted As Inpatient Clinical Impression: Acute cholecystitis, Elevated liver enzymes Cholelithiasis Qualifiers: Cholelithiasis location: gallbladder Cholecystitis presence: with cholecystitis Cholecystitis acuity: acute Biliary obstruction: without biliary obstruction Qualified Code(s): K80.00 - Calculus of gallbladder with acute cholecystitis without obstruction Admit Date/Time: 09/14/22 18:31 Admit Provider: Crystal Eli <Arminda Alvarez DO - Last Filed: 09/15/22 08:33> Cosign ED Attending Cosignature Attestation: I was immediately available in the department for consultation. Case was discussed.
[2022-09-14 15:12] LABS: Amylase 54 U/L (30-110)
[2022-09-14 15:15] LABS: Alanine Aminotransferase 592 IU/L (<35); Albumin 4.6 g/dL (3.5-5.0); Albumin Globulin Ratio 1.2 (1.0-2.8); Alkaline Phosphatase 528 U/L (38-126); Aspartate Aminotransferase 292 IU/L (14-36); BUN Creatinine Ratio 13.3 (6-22); Bilirubin Total 1.4 mg/dL (0.2-1.3); Blood Urea Nitrogen 8 mg/dL (7-17); Calcium 9.8 mg/dL (8.4-10.2); Carbon Dioxide 28 mmol/L (22-32); Chloride 98 mmol/L (98-107); Estimated Glomerular Filt Rate > 60 mL/min (>60); Globulin 3.8 g/dL (1.7-4.1); Glucose 97 mg/dL (70-100); HEMOLYSIS < 15 (0-50); Lipase 125 U/L (23-300); Potassium 3.5 mmol/L (3.4-5.1); Sodium 135 mmol/L (137-145); Total Protein 8.4 g/dL (6.3-8.2)
[2022-09-14 15:22] LABS: Lactate (Lactic Acid) 1.1 mmol/L (0.7-2.1)
[2022-09-14 15:23] LABS: Bacteria Urine Occasional (0-1); Culture Indicated Urine Cult Not Indicated; RBC Urine 0-1/HPF (0-5/HPF); WBC Urine 0-1/HPF (0-5/HPF)
[2022-09-14] MEDS: SODIUM CHLORIDE 0.9% 1,000 ML 1000 ML IV (15:24)
[2022-09-14] MEDS: KETOROLAC 30 MG/ML VIAL 15 MG IV (15:25)
[2022-09-14 15:28] LABS: C-Reactive Protein Quant 1.3 mg/dL (<1.0)
--- NOTE | 2022-09-14 15:34 | DI.CT.S_ITS ---
PROCEDURE: CT ABDOMEN PELVIS W CON INDICATIONS: Right upper quadrant pain and tenderness TECHNIQUE: After the administration of oral and IV contrast, axial sections were acquired from the lung bases to the pubic symphysis. Coronal and sagittal reformats were performed. For radiation dose reduction, the following was used: automated exposure control, adjustment of mA and/or kV according to patient size. COMPARISON: [facility], , ABDOMEN LIMITED, 09/14/2022, 16:18. FINDINGS: Image quality: Excellent. Lung bases: Unremarkable. Heart: No significant findings. ABDOMEN: Liver: Unremarkable. Gallbladder: Mild gallbladder wall hyperenhancement can be seen. No significant pericholecystic fluid can be seen. No stones are seen by CT. Biliary ducts: The common bile duct is mildly dilated at 8 mm. Pancreas: Unremarkable. Spleen: There is a simple cyst seen involving the medial spleen that measures up to 3.7 cm. Incidental note is made of an accessory splenule along the hilum of the primary spleen. Adrenal Glands: Unremarkable. Kidneys and Ureters: Unremarkable. Stomach and Bowel: Stomach, small bowel loops, and colon are unremarkable. A normal appendix is incidentally noted. Peritoneum: No abnormal intraperitoneal fluid. No free air. Ventral Wall: No hernia. Abdominal Nodes: No retroperitoneal or mesenteric adenopathy by size criteria. Vessels: Aorta and inferior vena cava are normal in size. PELVIS: Pelvic Organs: This patient is status post hysterectomy. No adnexal masses are seen. Bladder: Unremarkable. Pelvic Nodes: No enlarged lymph nodes. Miscellaneous: No inguinal hernias are seen. Bones: Focal L4-L5 and L5-S1 degenerative change can be seen. Milder degenerative changes are seen elsewhere. IMPRESSION: Mild gallbladder wall hyperenhancement seen. Mild biliary ductal dilatation. Additional findings: Simple splenic cyst Accessory splenule Normal appendix Hysterectomy Focal lower lumbar spine degenerative change Dictated by: Waqar Adan M.D. on 09/14/2022 at 15:59 Approved by: Waqar Adan M.D. on 09/14/2022 at 16:02
[2022-09-14] MEDS: diphenhydrAMINE 50 MG/ML VIAL 25 MG IV (16:23)
--- NOTE | 2022-09-14 16:25 | PC.NURSE ---
Pt states she felt a little itchy after CT w/ contrast. Provider notified, 25mg IV Benadryl given to lessen symptoms.
[2022-09-14] MEDS: metroNIDAZOLE 500 MG/100 ML PIGGYBACK 100 MG IV (17:31)
[2022-09-14] MEDS: HYDROMORPHONE 0.5 MG INJ IV (17:32)
[2022-09-14 20:01] LABS: COVID19 - ADMIT (NP swab/PCR) Negative (Negative)
[2022-09-14] MEDS: cefTRIAXone 1,000 MG in SODIUM CHLORIDE 0.9% 100 ML 200 MG IV (20:51)
[2022-09-14] MEDS: ACETAMINOPHEN 325 MG TABLET 975 MG PO (20:53)
[2022-09-14] MEDS: IBUPROFEN 600 MG TABLET PO (20:54)
--- NOTE | 2022-09-14 21:56 | P.HP_ITS ---
History of Present Illness History of Present Illness Date Patient Seen: 09/15/22 Chief complaint: UPPER ABD PAIN Narrative: Mrs. Santos is a relatively healthy 52-year-old female who presented to the emergency room with about a week of upper abdominal pain. She says that the pain started on Thursday night after eating meatloaf. She did have some nausea and emesis during that time. On Thursday and of this week the pain was better but on Thursday she saw her primary care physician and had some labs drawn that showed a total bilirubin level of 2.8, AST 460, alk-phos 334, ALT 43 0. He had advised her that he believed it was her gallbladder causing this issue. Over the weekend and especially on Thursday of this week which was yesterday the pain returned and worsened to the point where she decided to come to the emergency room. She denies that she is ever had gallbladder issues before this particular episode. She says she has never noticed jaundice or light-colored stools. She does have father who had his gallbladder removed and many family members in on his side of the family have also had gallbladder issues. She is allergies to penicillin sulfa and codeine and gets a rash with these in addition she got some IV contrast for a CT scan done in the emergency room which caused her to have some hives. She received Benadryl to treat this and this helped. Her normal medications are estradiol Abilify and fluoxetine. She has had a total hysterectomy and some diagnostic laparoscopies in the past as well as a open left inguinal hernia repair. She is had a cervical fusion of C4- 5 and C6-7 but does not have difficulty with moving her neck. She has had sinus surgery and rhinoplasty. In the emergency room are total bilirubin was 1.4 and repeated today on her hospital day 1 was down to 1.1. She does have some mildly elevated LFTs which are trending downward as well. CT scan showed inflammation around the gallbladder and gallbladder ultrasound also showed e vidence of acute cholecystitis as well as gallstones. [facility]LY [facility] Medical History Vaginal irritation Surgical History H/O inguinal hernia repair History of hysterectomy with bilateral oophorectomy Social History household members: none Smoking Status: Never smoker alcohol intake: current Meds Home Medications and Allergies Home Medications Medication Instructions Recorded Confirmed Type aripiprazole [Abilify] 2 mg PO QAM 03/04/19 09/14/22 History estradiol 1 mg PO QAM 03/04/19 09/14/22 History indomethacin PO 03/04/19 09/02/22 History ketorolac [Toradol] 15 mg PO PRN Migraine Headache 03/04/19 09/02/22 History lamotrigine 200 mg PO QPM 03/04/19 09/02/22 History lorazepam 0.5 mg PO PRN Anxiety 03/04/19 09/02/22 History methylphenidate HCl [Concerta] 35 mg PO QAM 03/04/19 09/14/22 History omeprazole [Prilosec] 20 mg PO QAM 03/04/19 09/14/22 History fluoxetine 60 mg PO QAM 09/02/22 09/14/22 History methylphenidate HCl 10 mg tablet 10 mg PO DAILY 09/02/22 09/02/22 History (Ritalin) tizanidine 8 mg PO QPM Sleep 09/02/22 09/14/22 History indomethacin 25 mg capsule 25 mg PO PRN PRN Migraine Headache 09/14/22 09/14/22 History Allergies Allergy/AdvReac Type Severity Reaction Status Date / Time codeine Allergy Intermediate rash, Verified 09/14/22 12:24 nausea Penicillins Allergy Mild rash Verified 09/14/22 12:24 Sulfa (Sulfonamide Allergy Mild rash Verified 09/14/22 12:24 Antibiotics) Exam Vital Signs (past 8 hours): - 09/14/22 14:00 09/14/22 14:01 09/14/22 14:01 Temperature Pulse Rate 86 83 Respiratory Rate 17 18 Blood Pressure 154/67 H Pulse Oximetry 99 99 Oxygen Flow Rate 09/14/22 14:30 09/14/22 14:30 09/14/22 15:00 Temperature Pulse Rate 86 Respiratory Rate 24 Blood Pressure 168/91 H 163/75 H Pulse Oximetry 99 Oxygen Flow Rate 09/14/22 15:00 09/14/22 15:30 09/14/22 15:30 Temperature Pulse Rate 80 80 Respiratory Rate 18 18 Blood Pressure 142/93 H Pulse Oximetry 99 98 Oxygen Flow Rate 09/14/22 16:00 09/14/22 16:00 09/14/22 16:15 Temperature Pulse Rate 79 82 Respiratory Rate 18 22 Blood Pressure 138/87 Pulse Oximetry 99 99 Oxygen Flow Rate 09/14/22 16:15 09/14/22 16:30 09/14/22 17:00 Temperature Pulse Rate 79 85 Respiratory Rate 19 21 Blood Pressure 159/77 H Pulse Oximetry 98 100 Oxygen Flow Rate 09/14/22 17:30 09/14/22 17:54 09/14/22 17:54 Temperature Pulse Rate 81 80 Respiratory Rate 17 20 Blood Pressure 160/83 H Pulse Oximetry 99 99 Oxygen Flow Rate 09/14/22 18:00 09/14/22 18:00 09/14/22 18:30 Temperature Pulse Rate 77 77 Respiratory Rate 14 21 Blood Pressure 142/66 H Pulse Oximetry 98 99 Oxygen Flow Rate 09/14/22 18:31 09/14/22 18:31 09/14/22 19:33 Temperature 98.8 F Pulse Rate 77 78 Respiratory Rate 17 Blood Pressure 180/78 H 151/76 H Pulse Oximetry 99 95 Oxygen Flow Rate 0 Oxygen Delivery Method Room Air Oxygen Flow Rate 0 Const General: cooperative, healthy appearing, comfortable and well developed Nutritional Appearance: obese HENMT Head: normal to inspection Eyes General: appearance normal, both eyes and all related structures Resp Effort & Inspection: normal respiratory effort and able to speak in complete sentences Cardio Pulses: radial pulses present GI Palpation: soft and tender (Mild tenderness in the epigastric and right upper q uadrant.) Skin General: no rashes or lesions noted Extrem General: normal to inspection Objective Labs 09/15/22 06:02 09/15/22 06:02 Labs: Laboratory Results - last 24 hr 09/14/22 09/14/22 09/14/22 12:42 14:40 14:40 WBC 6.0 RBC 4.70 Hgb 14.4 Hct 41.4 MCV 88.0 MCH 30.7 MCHC 34.8 RDW 13.1 Plt Count 290 Neut % (Auto) 64.2 Lymph % (Auto) 27.0 [place] % (Auto) 5.5 Eos % (Auto) 2.3 Baso % (Auto) 1.0 Neut # (Auto) 3800 Lymph # (Auto) 1600 [place] # (Auto) 300 Eos # (Auto) 100 Baso # (Auto) 100 Sodium 135 L Potassium 3.5 Chloride 98 Carbon Dioxide 28 BUN 8 Creatinine 0.60 Estimated GFR > 60 BUN/Creatinine Ratio 13.3 Glucose 97 Lactate Calcium 9.8 Total Bilirubin 1.4 H AST 292 H ALT 592 H Alkaline Phosphatase 528 H C-Reactive Protein Total Protein 8.4 H Albumin 4.6 Globulin 3.8 Albumin/Globulin Ratio 1.2 Amylase Lipase 125 Urine RBC 0-1/hpf Urine WBC 0-1/hpf Urine Bacteria Occasional (0-1) Ur Culture Indicated? Cult not indicated SARS-CoV-2 (PCR) 09/14/22 09/14/22 09/14/22 14:40 14:40 14:40 WBC RBC Hgb Hct MCV MCH MCHC RDW Plt Count Neut % (Auto) Lymph % (Auto) Highlands % (Auto) Eos % (Auto) Baso % (Auto) Neut # (Auto) Lymph # (Auto) [place] # (Auto) Eos # (Auto) Baso # (Auto) Sodium Potassium Chloride Carbon Dioxide BUN Creatinine Estimated GFR BUN/Creatinine Ratio Glucose Lactate 1.1 Calcium Total Bilirubin AST ALT Alkaline Phosphatase C-Reactive Protein 1.3 H Total Protein Albumin Globulin Albumin/Globulin Ratio Amylase 54 Lipase Urine RBC Urine WBC Urine Bacteria Ur Culture Indicated? SARS-CoV-2 (PCR) 09/14/22 18:50 WBC RBC Hgb Hct MCV MCH MCHC RDW Plt Count Neut % (Auto) Lymph % (Auto) Highlands % (Auto) Eos % (Auto) Baso % (Auto) Neut # (Auto) Lymph # (Auto) [place]lands # (Auto) Eos # (Auto) Baso # (Auto) Sodium Potassium Chloride Carbon Dioxide BUN Creatinine Estimated GFR BUN/Creatinine Ratio Glucose Lactate Calcium Total Bilirubin AST ALT Alkaline Phosphatase C-Reactive Protein Total Protein Albumin Globulin Albumin/Globulin Ratio Amylase Lipase Urine RBC Urine WBC Urine Bacteria Ur Culture Indicated? SARS-CoV-2 (PCR) Negative Assessment & Plan Assessment and plan (1) Cholelithiasis: Qualifiers: Biliary obstruction: without biliary obstruction Cholecystitis acuity: acute Cholecystitis presence: with cholecystitis Cholelithiasis location: gallbladder Qualified Code(s): K80.00 - Calculus of gallbladder with acute cholecystitis without obstruction Status: Acute (2) Acute cholecystitis: Status: Acute (3) Elevated liver enzymes: Status: Acute Assessment & Plan narrative: I think based on her labs she does have some evidence of some cholelithiasis that has now resolved. Based on these findings a intraoperative cholangiogram is reasonable. I discussed with Ms. Delgado the risks benefits and alternatives of a laparoscopic possible open cholecystectomy during this hospitalization. She understands the risks including but not limited to bile duct injury need for further operations or procedures or hospitalizations because of injury to other organs, bleeding, infection.
[2022-09-14] MEDS: CIPROFLOXACIN 400 MG/200 ML PIGGYBACK 200 MG IV (21:58)
[2022-09-15] MEDS: metroNIDAZOLE 500 MG/100 ML PIGGYBACK 100 MG IV ×3 (01:57→17:05)
[2022-09-15] MEDS: HYDROMORPHONE 0.5 MG INJ IV ×2 (02:08→09:35)
[2022-09-15 04:00] VITALS: BP 135/69; PULSE 69; RESP 19; TEMP 36.4; O2SAT 96
[2022-09-15 06:26] LABS: Add Manual Diff / Slide Review NO; Basophils Absolute Auto 0 /uL (0-100); Basophils Percent Auto 0.7 % (0-2); Eosinophils Absolute Auto 200 /uL (0-450); Eosinophils Percent Auto 4.5 % (2-4); Hematocrit 38.7 % (36-46); Hemoglobin 13.6 g/dL (12.0-16.0); Lymphocytes Absolute Auto 1700 /uL (1100-4500); Mean Corpuscular HGB Conc 35.1 % (30-36); Mean Corpuscular Hemoglobin 30.8 PG (26-34); Mean Corpuscular Volume 87.9 fL (80-100); Monocytes Absolute Auto 300 /uL (0-900); Neutrophils Absolute Auto 2300 /uL (1500-7000); Neutrophils Percent Auto 49.8 % (50-75); Platelet Count 259 X10^3/uL (150-400); Red Cell Distribution Width 12.9 % (11.6-14.8); White Blood Cell Count 4.6 X10^3/uL (4.5-11.0)
[2022-09-15 06:42] LABS: Alanine Aminotransferase 495 IU/L (<35); Albumin Globulin Ratio 1.3 (1.0-2.8); Alkaline Phosphatase 495 U/L (38-126); Aspartate Aminotransferase 297 IU/L (14-36); BUN Creatinine Ratio 11.1 (6-22); Bilirubin Total 1.1 mg/dL (0.2-1.3); Bilirubin Unconjugated 0.4 mg/dL (0.0-1.1); Blood Urea Nitrogen 6 mg/dL (7-17); Carbon Dioxide 27 mmol/L (22-32); Chloride 100 mmol/L (98-107); Estimated Glomerular Filt Rate > 60 mL/min (>60); Globulin 3.2 g/dL (1.7-4.1); Glucose 80 mg/dL (70-100); HEMOLYSIS < 15 (0-50); Potassium 3.2 mmol/L (3.4-5.1); Sodium 135 mmol/L (137-145); Total Protein 7.2 g/dL (6.3-8.2)
[2022-09-15] MEDS: ENOXAPARIN 40 MG/0.4 ML SYRINGE SUBCUT (08:25)
[2022-09-15 09:01] VITALS: BP 118/72; PULSE 65; RESP 18; TEMP 36.9; O2SAT 93
[2022-09-15] MEDS: CIPROFLOXACIN 400 MG/200 ML PIGGYBACK 200 MG IV ×2 (09:35→20:01)
[2022-09-15] MEDS: ONDANSETRON 4 MG/2 ML INJ IV (10:09)
[2022-09-15] MEDS: POTASSIUM CHLORIDE IN WATER 10 MEQ/100 ML PIGGYBACK 100 MEQ IV ×3 (10:48→13:20)
--- NOTE | 2022-09-15 11:34 | CM.DANOTE ---
Initial Discharge Assessment Note: Case reviewed, met with patient and sister Pricilla. Introduced self and role. Payer: Ofelia SOLOMON and self pay PCP: Nena Vieira 52 year old female with abdominal pain admitted yesterday. Dr Eli has consulted. Patient lives alone in rented house (lower portion) she works and is active and independent. Her sister Pricilla is supportive and lives in [facility] as well as patient's mother. Plan: When medically/surgically cleared, discharge home to previous living arrangement. Family to transport. TATI Discharge Planning/Care Management CM Discharge Assessment Start: 09/15/22 10:41 Freq: Status: Active Protocol: Document 09/15/22 10:42 (Rec: 09/15/22 10:43 [id number]) Discharge Planning Assessment Assigned Bending Frame Operator Dinorah Min RN/NAKIAP Advance Directives? No History Provided By Patient Prior Living Arrangements House Household Members none Document 09/15/22 11:32 SJ (Rec: 09/15/22 11:34 [id number]) Discharge Planning Assessment Assigned Bending Frame Operator Dinorha Min RN/NAIKAP Advance Directives? No History Provided By Patient Prior Living Arrangements House Household Members none Comment Lives in lower half of house, rents Type of transporation used prior to Drives own vehicle admit Independent with ADL's Yes Is patient alert and oriented? Yes Caregiver for Another No Barriers to Discharge No Discharge Plan Home Referrals Initiated None needed Review Status In Process Next Review Type Continued Stay Review
[2022-09-15 12:00] VITALS: BP 129/63; PULSE 71; RESP 18; TEMP 36.8; O2SAT 92
[2022-09-15] MEDS: ONDANSETRON 4 MG ODT PO ×2 (14:21→20:55)
[2022-09-15] MEDS: POTASSIUM CHLORIDE 10 MEQ TAB PO (15:10)
[2022-09-15] MEDS: IBUPROFEN 600 MG TABLET PO ×2 (15:53→20:00)
[2022-09-15] MEDS: ACETAMINOPHEN 325 MG TABLET 975 MG PO ×2 (15:53→19:59)
[2022-09-15 16:40] VITALS: BP 135/67; PULSE 73; RESP 18; TEMP 37; O2SAT 99
[2022-09-15 19:55] VITALS: BP 139/66; PULSE 68; RESP 18; TEMP 36.8; O2SAT 97
[2022-09-15] MEDS: FLUoxetine 20 MG CAPSULE 60 MG PO (19:57)
[2022-09-15] MEDS: lamoTRIgine 100 MG TABLET 200 MG PO (20:00)
[2022-09-16] VITALS (15 sets, daily range): BP systolic 131–157; BP diastolic 66–88; PULSE 75–92; RESP 12–20; TEMP 36.3–37.2; O2SAT 92–99; BMI 36.2
--- NOTE | 2022-09-16 | PATH_ITS ---
[facility] Accession Number: [id number] No. of containers..01 Tissue . 01 Material submitted: . gallbladder - GALLBLADDER . 01 Diagnosis: Gallbladder, Cholecystectomy: Chronic cholecystitis and cholelithiasis. Benign pericystic lymph node, negative for dysplasia and neoplasia. MRV 09/18/2022 1241 Local . 01 Electronically signed: . Nusrat Mejia MD, Pathologist NPI- [id number] . 01 Gross description: . The specimen is received in formalin labeled with the patient's name, , and gallbladder, and consists of previously opened gallbladder measuring 8.5 x 3.7 x 2.8 cm. The serosa is siddiqui to congested while the hepatic surface is significant for a full thickness defect measuring 5.7 cm in greatest dimension. The cystic duct is received patent, is inked blue, and a siddiqui pericystic lymph node is identified measuring 0.7 cm in greatest dimension. The lumen contains a small amount of dark green viscous bile admixed with numerous red-brown faceted calculi measuring up to. 0.6 cm in greatest dimension grossly obstructing the cystic duct. The mucosa is siddiqui and trabecular with no pinpoint yellow areas of discoloration, polyps or lesions grossly identified. The sood average 0.3 cm thick. Plant Technician/Control Room Operator sections to include the cystic duct margin, intact lymph node candidate, and full thickness sections are submitted in cassette A1. ([id number]) /MRV 09/17/2022 1827 Local . 01 Pathologist provided ICD-10: K81.1 . 01 CPT . 615915 Specimen Comment: A courtesy copy of this report has been sent to [phone] Performed at: [address] [place] [address] [place] [address] [address], [place], [place] [id number] MD Baldo Jaime MD Phone: [phone]
[2022-09-16] MEDS: metroNIDAZOLE 500 MG/100 ML PIGGYBACK 100 MG IV ×2 (00:44→09:01)
[2022-09-16 06:57] LABS: HEMOLYSIS 36 (0-50); Potassium 3.8 mmol/L (3.4-5.1)
[2022-09-16] MEDS: CIPROFLOXACIN 400 MG/200 ML PIGGYBACK 200 MG IV (11:04)
--- NOTE | 2022-09-16 11:13 | CM.DPC ---
DCP Cont: Per Surgeon, plan is for pt to go to OR today for Lap [place]. Per yarn weigher, pt currently on the surgery schedule for 1515 to the OR. Pending surgery and progress, possible potential discharge tonight vs tomorrow pending stability and surgery complications. Pt is active and independent at baseline and currently no d/c needs identified. plan: SW to follow closely after surgery this afternoon to determine if any discharge planning needs and likely plan of home alone and outpt f/u. CARY Carr
[2022-09-16] MEDS: LACTATED RINGERS 1,000 ML 42 ML IV ×2 (12:39→14:14)
--- NOTE | 2022-09-16 13:09 | PM.PREOP ---
Pre-operative Note COVID-19 COVID-19 status: Negative Criteria for continued procedure: Expected advancement of disease process Interval Note History & Physical reviewed/Exam performed by Physician: Yes Changes to H&P: No
--- NOTE | 2022-09-16 13:51 | SUR.OPER ---
Supine on padded OR bed, head on pillow, safety belt at thigh, left arm padded and tucked at side. Right arm secured on padded arm board <90 degrees abduction. Legs uncrossed. Tape over blanket to secure lower legs.
[2022-09-16] MEDS: BUPIVACAINE 0.5% (PF) 20 ML, EPINEPHrine 0.1 MG INJ (14:12)
--- NOTE | 2022-09-16 14:23 | PM.OP.1 ---
Operative Date/Time/Diagnoses Date of procedure: 09/16/22 Time of procedure: 14:23 Pre-op diagnosis: Acute cholecystitis Post-op diagnosis: same Procedure & Clinicians Procedure: Laparoscopic cholecystectomy Same procedure as scheduled: Yes Indications: Acute cholecystitis Surgeon: Nusrat Mccain Click Yes if Unassisted: Yes Anesthesia Type: General Operative Notes Findings: Acute cholecystitis Closure Type: primary Specimen(s): other (Gallbladder) Estimated Blood Loss (mL): 15 Blood products transfused: none Procedure in detail: Preop diagnosis: Acute cholecystitis Postop diagnosis: Same Operative procedure: Laparoscopic cholecystectomy Surgeon: Rosemarie Mccain MD Anesthetic: General with ET tube intubation with local Findings: Acute cholecystitis Procedure: Patient placed in a supine position. Prepped and draped in sterile fashion to expose her abdomen. Infraumbilical port site was placed using open technique a 12 mm port. Insufflation began all other ports were placed under direct vision including a 10 mm port in the midepigastrium and 2 5 mm ports in the right lateral abdomen. Gallbladder was grasped pushed cephalad for exposure taking down adhesions to the omentum and the stomach. I then found the cystic duct and dissected it free. Two clips were placed proximally 1 distally in the was transected. Cystic artery was identified clipped once distally once proximally and transected. Gallbladder was removed from the fossa with electrocautery and excellent hemostasis. Some spillage of bile and the operative site that was suctioned to a clear return and some spillage of bile and stone at the umbilical port site also retrieved and or irrigated to a clear return. Gallbladder had been placed into an Endo-Catch bag pulled through the infraumbilical port site intact with the exception of 2 small stones that were retrieved. We then began closure. Closure consisted of interrupted 0 Vicryl for fascial closure. Skin was a running 4-0 Vicryl. Steri-Strips and sterile dressings were placed. Patient was awakened, extubated, taken to recovery room in stable condition with needle, instrument, sponge counts correct. Blood loss: 15 mL Specimen: Gallbladder Complications: none Post-operative Condition: stable Disposition: PACU
[2022-09-16] MEDS: OXYCODONE IR 5 MG TABLET PO (14:40)
[2022-09-16] MEDS: ONDANSETRON 4 MG/2 ML INJ IV (14:40)
--- NOTE | 2022-09-16 15:18 | PC.NURSE ---
Return from PACU. Dressings to abd are c/d/i. Had some nausea down in PACU. She is a little groggy. Given call light and instructed in use. Nausea has mostly resolved. Can eat but not hungry yet, Might want something later. Whas chilled and warm blankets given.
[2022-09-16] MEDS: HYDROMORPHONE 0.5 MG INJ IV (15:55)
[2022-09-16] MEDS: ONDANSETRON 4 MG ODT PO ×2 (15:55→20:47)
[2022-09-16] MEDS: lamoTRIgine 100 MG TABLET 200 MG PO (18:26)
--- NOTE | 2022-09-16 19:08 | PC.NURSE ---
Off to OR earlier today. Returned to floor at 1430. Sl nausea, had already been given zofran in OR. Recieved oxy for pain in PACU which she thinks made her also feel a little nausea. Dilaudid IV given here on the floor and reported her pain was controlled since. Tolerated a small amt of diet. Gauze dressings to abd are c/d/i. No void yet since surgery.
[2022-09-16] MEDS: ACETAMINOPHEN 325 MG TABLET 975 MG PO (20:45)
[2022-09-16] MEDS: IBUPROFEN 600 MG TABLET PO (20:46)
[2022-09-16] MEDS: HYDROMORPHONE 1 MG INJ IV (20:47)
[2022-09-16] MEDS: OXYCODONE IR 10 MG TABLET PO (20:47)
[2022-09-17 01:24] VITALS: BP 135/71; PULSE 84; RESP 18; TEMP 36.6; O2SAT 94
[2022-09-17] MEDS: OXYCODONE IR 10 MG TABLET PO ×2 (01:25→04:16)
[2022-09-17] MEDS: IBUPROFEN 600 MG TABLET PO ×2 (04:16→09:09)
[2022-09-17] MEDS: ACETAMINOPHEN 325 MG TABLET 975 MG PO ×2 (04:16→09:09)
[2022-09-17] MEDS: ONDANSETRON 4 MG ODT PO (04:19)
[2022-09-17 04:27] VITALS: BP 145/69; PULSE 77; RESP 18; TEMP 36.4; O2SAT 95
[2022-09-17 08:33] VITALS: BP 113/60; PULSE 70; RESP 15; TEMP 36.9; O2SAT 96
[2022-09-17] MEDS: FLUoxetine 20 MG CAPSULE 60 MG PO (09:10)
--- NOTE | 2022-09-17 10:40 | PM.PNPO.1 ---
Subjective Subjective Date Patient Seen: 09/17/22 Time Patient Seen: 10:40 Interval history: sore and tired but ready to go home Exam Vital Signs (past 8 hours): - 09/17/22 04:27 09/17/22 07:35 09/17/22 08:33 Temperature 97.5 F L 98.4 F Pulse Rate 77 70 Respiratory Rate 18 15 Blood Pressure 145/69 H 113/60 Pulse Oximetry 95 96 Oxygen Delivery Method Room Air Oxygen Flow Rate 0 0 Oxygen Delivery Method Room Air Oxygen Flow Rate 0 Narrative Exam Narrative: wounds have some old blood, abdomen is benign. Objective Labs 09/15/22 06:02 09/16/22 05:54 PFSH Medical History Vaginal irritation Surgical History H/O inguinal hernia repair History of hysterectomy with bilateral oophorectomy Social History household members: none Smoking Status: Never smoker alcohol intake: current Assessment & Plan Post-op Postoperative Procedures: Procedures Operation Date: 09/16/22 13:45 Actual Procedure Side Surgeon p Laparoscopic Cholecystectomy Nusrat Mccain MD Postoperative status: doing well Postoperative plan: discharge Time Spent With Patient Time with patient: less than 15 minutes Quality VTE Deep Vein Thrombosis/Pulmonary Embolism Present on Admission: No
--- NOTE | 2022-09-17 10:41 | P.DS_ITS ---
History of Present Illness History of Present Illness Date Patient Seen: 09/17/22 Time Patient Seen: 10:41 Chief complaint: UPPER ABD PAIN Narrative: acute allison, s/p lap allison on 09/16/22 Discharge Providers Provider Date of admission: 09/14/22 18:31 Discharge Date: 09/17/22 Primary care physician: Nena Vieira MD Consults: 09/14/22 16:36 Consult to General Surgery Stat Comment: Consulting Provider: Crystal Eli Reason for consultation: cholelithiasis Has provider been notified: Yes Discharge provider: Nusrat Mccain MD Summary Hospital Course Discharge Diagnosis: Acute allison Hospital Course: s/p lap allison Status at Discharge Cognitive/behavioral status at discharge: at baseline, oriented Functional status at discharge: independent ambulation Overall status at discharge: patient is progressing back to baseline Time Spent with Patient Time spent: Less than 30 minutes Exam Vital Signs (past 8 hours): - 09/17/22 04:27 09/17/22 07:35 09/17/22 08:33 Temperature 97.5 F L 98.4 F Pulse Rate 77 70 Respiratory Rate 18 15 Blood Pressure 145/69 H 113/60 Pulse Oximetry 95 96 Oxygen Delivery Method Room Air Oxygen Flow Rate 0 0 Oxygen Delivery Method Room Air Oxygen Flow Rate 0 Narrative Exam Narrative: dressings are soiled and will be changed prior to discharge. No complications Objective Labs 09/15/22 06:02 09/16/22 05:54 PFSH Medical History Vaginal irritation Surgical History H/O inguinal hernia repair History of hysterectomy with bilateral oophorectomy Social History household members: none Smoking Status: Never smoker alcohol intake: current Discharge Assessment & Plan Assessment and Plan Assessment: s/p lap allison Plan of Treatment: discharge home with lifting restrictions for 4 weeks of 15lbs Discharge Plan Discharge Plan Patient Disposition: Home Discharge orders & Medications Prescriptions: New oxycodone 5 mg Tablet 5 mg PO 4XD PRN (Reason: Pain, Moderate (4-6)) Qty: 15 0RF Continued omeprazole 20 mg PO QAM estradiol 1 mg PO QAM aripiprazole 2 mg PO QAM methylphenidate HCl 35 mg PO QAM lamotrigine 200 mg PO QPM indomethacin PO lorazepam 0.5 mg PO PRN (Reason: Anxiety) ketorolac 15 mg PO PRN (Reason: Migraine Headache) fluoxetine 60 mg PO QAM tizanidine 8 mg PO QPM methylphenidate HCl [Ritalin] 10 mg tablet 10 mg PO DAILY indomethacin 25 mg capsule 25 mg PO PRN PRN (Reason: Migraine Headache) Patient Comments: TAKE 1 TO 2 CAPSULES BY MOUTH TWICE DAILY WITH FOOD NEEDED FOR HEADACHE Rx Instructions: take upon migraine start Follow up/Referrals: Crystal lEi MD [Physician] - Nena Vieira MD [Primary Care Provider] - Diet/Activity/Treatments Diet: Diet as Tolerated Skin/Wound/Dressing Care Report to your healthcare provider any signs of infection, such as:: chills, fever, increased pain, unusual drainage and unusual redness Visit Report/Discharge Packet Instructions: DI for Open Cholecystectomy, DI for Laparoscopy, DI for Pre scription Opioid Use, DI for Taking Pain Medication, [facility]: Wound Care Stand Alone Forms: Patient Portal/API, Surgery Discharge Discharge Data Primary Care Provider: Nena Vieira Attending Provider: Crystal Eli Admit Date/Time: 09/14/22 18:31 Quality VTE Deep Vein Thrombosis/Pulmonary Embolism Present on Admission: No
[2022-09-17] MEDS: OXYCODONE IR 5 MG TABLET PO (13:02)
--- NOTE | 2022-09-17 14:14 | PC.NURSE ---
Discharge: Pt feels ready to d/c to home. Tolerates sm amt of diet w/out problems. Vds w/out diff. Po meds have been effective for pain. All 4 dressings to abd were changed, cleaned and the new dressings applied. Steri strips intact, no drainage at this time. Seen by this am and given d/c instructions. Reviewed discharge packet, office called for appt, 10/02/22 at 1000 w/Dr. Dexter. Pt given information. Rx was esent. Questions answered. Pt d/c to home via auto w/friend.
--- NOTE | 2022-10-01 13:31 | PC.NURSE ---
Late Entry: Ceftriaxone infusion initiated 09/16 at 2050 complete at 2121.
== END 2022-09-17 13:25 | disposition home or self-care (01) ==
LOC: ED 14:58 → AC 18:55
PROVIDERS: Emergency Medicine; Surgery; Admitting Provider Surgery; Emergency Provider Nurse Practitioner Critical Care Medicine; PCP Internal Medicine; Referring Provider Nurse Practitioner Critical Care Medicine; Visit Provider Surgery
PROC: 0FT44ZZ Resection of Gallbladder, Percutaneous Endoscopic Approach (ICD-10-PCS; CPT 47562; principal; 2022-09-16 13:45)
DX: K80.00 Calculus of gallbladder with acute cholecystitis without obstruction (principal); R74.8 Abnormal levels of other serum enzymes; Z20.822 Contact with and (suspected) exposure to COVID-19
CPT/HCPCS: 47562; 36415; 74177; 76705; 80048; 80053; 80076; 81003; 81015; 81025; 82150; 83605; 83690; 84132; 85025; 86140; 87635; 93005; 96365; 96366; 96367; 96375; 96376; 99222; 99284; C9803; G0378; J0171; J0330; J0696; J0744; J1100; J1170; J1200; J1650; J1885; J2250; J2405; J2704; J3010; Q9967

== ENCOUNTER → 2022-11-05 08:38 | Outpatient (CLI) | payer OTHER, SELFPAY ==
[2022-09-14 22:16] VITALS: BMI 36.2
--- NOTE | 2022-11-05 | DI.RAD.S_ITS ---
PROCEDURE: XR WRIST LT MIN 3V INDICATIONS: fell on L wrist, outstretched, persistent pain in snuffbox TECHNIQUE: 4 views of the wrist were acquired. COMPARISON: None. FINDINGS: Bones: No acute fractures or dislocations. No suspicious bony lesions. Scaphoid view: Intact. Soft tissues: No suspicious soft tissue calcifications. IMPRESSION: No acute osseous abnormality. If the symptoms persist, consider cross sectional imaging such as MRI or CT for further assessment. Approved by: Shelton Perla M.D. on 11/05/2022 at 11:17
== END ==
PROVIDERS: PCP Internal Medicine; Referring Provider Internal Medicine; Visit Provider Internal Medicine
DX: M25.532 Pain in left wrist (principal)
CPT/HCPCS: 73110

== ENCOUNTER → 2022-11-07 10:49 | Outpatient (CLI) | payer OTHER, SELFPAY ==
[2022-09-14 22:16] VITALS: BMI 36.2
--- NOTE | 2022-11-07 | DI.CT.S_ITS ---
PROCEDURE: CT WRIST LEFT WITHOUT CON INDICATIONS: Pain in left wrist TECHNIQUE: Noncontrast 1 mm axial sections acquired through the carpal bones, with coronal and sagittal reformats. COMPARISON: [facility], CR, XR WRIST LT MIN 3V, 11/05/2022, 8:38. FINDINGS: Image quality: Excellent. Bones: No acute osseous fracture or dislocation. No suspicious osseous lesion. Mild degenerative changes in the wrist including the 1st carpometacarpal joint and triscaphe joint. Minimal radiocarpal osteoarthrosis. Soft tissues: No significant joint effusion. The articular cartilages, ligaments, and tendons are not well evaluated on standard CT. IMPRESSION: No acute osseous abnormality. MRI could be performed to evaluate for trabecular bone injury or soft tissue injury if indicated clinically. Approved by: Shelton Perla M.D. on 11/07/2022 at 12:49
== END ==
PROVIDERS: PCP Internal Medicine; Referring Provider Internal Medicine; Visit Provider Internal Medicine
DX: M25.532 Pain in left wrist (principal)
CPT/HCPCS: 73200

== ENCOUNTER → 2023-02-11 07:28 | Outpatient (CLI) | payer OTHER, SELFPAY ==
[2022-09-14 22:16] VITALS: BMI 36.2
[2023-02-11 08:25] LABS: COVID-19 CEPHEID 4-PLEX PCR Negative (Negative); Influenza A - CEPHEID Flu A NEGATIVE (NEGATIVE); Influenza B - CEPHEID Flu B NEGATIVE (NEGATIVE); Respiratory Syncytial Virus Negative (Negative)
== END ==
PROVIDERS: PCP Internal Medicine; Visit Provider Nurse Practitioner Family
DX: J06.9 Acute upper respiratory infection, unspecified (principal)
CPT/HCPCS: 0241U

== ENCOUNTER → 2023-03-19 13:39 | Outpatient (CLI) | payer OTHER, SELFPAY ==
[2022-09-14 22:16] VITALS: BMI 36.2
--- NOTE | 2023-03-19 13:50 | DI.RAD.S_ITS ---
PROCEDURE: XR ANKLE RT MIN 3V INDICATIONS: Acute right ankle pain TECHNIQUE: 3 views of the ankle were acquired. COMPARISON: None. FINDINGS: Bones: No fractures or dislocations. Ankle mortise is normally aligned. No suspicious bony lesions. Mild degenerative joint disease at the tibiotalar joint and talonavicular joint. Question a small osteochondroma in the medial aspect of the tibia. Soft tissues: No tibiotalar joint effusion. Achilles tendon appears normal. IMPRESSION: 1. Mild degenerative joint disease. Dictated by: Becca Romeo M.D. on 03/19/2023 at 14:33 Approved by: Becca Romeo M.D. on 03/19/2023 at 14:35
--- NOTE | 2023-03-19 13:50 | DI.RAD.S_ITS ---
PROCEDURE: XR KNEE RT 3V INDICATIONS: Acute right knee pain TECHNIQUE: 3 views of the knee were acquired. COMPARISON: [facility], CR, XR ANKLE RT MIN 3V, 03/19/2023, 13:57. FINDINGS: Bones: No fractures or dislocations. No suspicious bony lesions. Nonaggressive periosteal reaction in the the proximal fibular shaft. Mild arthritic changes with small periarticular osteophytes. Soft tissues: Trace joint effusion. No suspicious soft tissue calcifications. IMPRESSION: 1. No acute osseous abnormality. 2. Mild osteoarthritis. 3. Trace knee joint effusion. Dictated by: Becca Romeo M.D. on 03/19/2023 at 14:35 Approved by: Becca Romeo M.D. on 03/19/2023 at 14:39
== END ==
PROVIDERS: PCP Internal Medicine; Referring Provider Physician Assistant; Visit Provider Physician Assistant
DX: M25.561 Pain in right knee (principal); M17.11 Unilateral primary osteoarthritis, right knee; M25.461 Effusion, right knee; M19.071 Primary osteoarthritis, right ankle and foot
CPT/HCPCS: 73562; 73610

== ENCOUNTER → 2023-03-20 17:18 | Outpatient (CLI) | payer OTHER, SELFPAY ==
[2022-09-14 22:16] VITALS: BMI 36.2
--- NOTE | 2023-03-20 17:19 | DI.MRI.S_ITS ---
PROCEDURE: MR KNEE RT WO CON INDICATIONS: Pain in right knee TECHNIQUE: Noncontrast sagittal PD fast spin echo and T2 fast spin echo with fat saturation, sagittal 3-D FLASH with fat saturation; coronal T1 spin echo and PD fast spin echo with fat saturation, and axial PD fast spin echo with fat saturation through the knee. COMPARISON: [facility], CR, XR KNEE RT 3V, 03/19/2023, 14:01. FINDINGS: Image quality: Excellent. Menisci: The medial and lateral menisci demonstrate normal morphology and internal signal. The meniscal root ligaments appear intact. Cruciate ligaments: There is mild posterior bowing and thinning involving the inferior aspect of the anterior cruciate ligament. Posterior cruciate ligament is intact Medial structures: Partial-thickness tearing of the medial collateral ligament at the midportion and femoral origin. Visualized portions of the pes anserinus tendons appear normal. No abnormal bursal fluid. Lateral structures: The lateral collateral ligament demonstrates partial-thickness tearing at the femoral origin. The long and short heads of the biceps femoris tendon appear intact. The popliteus tendon appears normal. Iliotibial band appears normal. Anterior structures: The quadriceps and patellar tendons appear intact. Patellar alignment is normal. No femoral trochlear dysplasia or ventral trochlear prominence. No edema in the infrapatellar fat pad. Bones and cartilage: No bone marrow contusions or fractures. Subchondral cyst formation and moderate articular cartilage loss within the lateral femoral trochlea. Mild tricompartmental periarticular osteophyte formation. Moderate articular cartilage loss diffusely overlies the weight-bearing aspects of the medial femoral condyle and medial tibial plateau. Articular cartilage fibrillation overlies the lateral patellar facet. Joint space: There is a small knee joint effusion. No Childress's cyst. Normal appearing synovial plicae are incidentally noted. IMPRESSION: 1. Partial-thickness anterior cruciate ligament tear. 2. Tricompartmental osteoarthritis with associated articular cartilage loss. 3. Partial-thickness tears of the medial and lateral collateral ligament. 4. Knee joint effusion. Dictated by: Johnnie Madrid M.D. on 03/23/2023 at 11:01 Approved by: Johnnie Madrid M.D. on 03/23/2023 at 11:03
== END ==
PROVIDERS: PCP Internal Medicine; Referring Provider Physician Assistant; Visit Provider Physician Assistant
DX: S83.511A Sprain of anterior cruciate ligament of right knee, initial encounter (principal); M17.11 Unilateral primary osteoarthritis, right knee; S83.421A Sprain of lateral collateral ligament of right knee, initial encounter; S83.411A Sprain of medial collateral ligament of right knee, initial encounter; M25.461 Effusion, right knee
CPT/HCPCS: 73721

== ENCOUNTER → 2023-04-24 15:03 | Outpatient (CLI) | payer OTHER, SELFPAY ==
[2022-09-14 22:16] VITALS: BMI 36.2
[2023-04-24 17:25] LABS: Urine N gonorrhoeae NOT DETECTED
[2023-04-24 17:37] LABS: Urine Chlamydia NOT DETECTED
== END ==
PROVIDERS: PCP Internal Medicine; Visit Provider Nurse Practitioner Family
DX: R30.0 Dysuria (principal); N94.9 Unspecified condition associated with female genital organs and menstrual cycle
CPT/HCPCS: 87086; 87210; 87491; 87591

== ENCOUNTER → 2023-08-24 17:16 | Outpatient (CLI) | payer OTHER, SELFPAY ==
[2022-09-14 22:16] VITALS: BMI 36.2
--- NOTE | 2023-08-24 | DI.MG.S_ITS ---
BILATERAL DIGITAL SCREENING MAMMOGRAM 3D/2D WITH CAD: 08/24/2023 CLINICAL: Routine screening. Family history of breast cancer. Comparison is made to exams dated: 08/12/2022 mammogram, 07/26/2021 mammogram, 06/30/2020 mammogram, and 05/05/2019 mammogram - [facility]. There are scattered areas of fibroglandular density in both breasts (category b / 25%-50% glandular tissue). Current study was also evaluated with a Computer Aided Detection (CAD) system. No significant masses, calcifications, or other findings are seen in either breast. There has been no significant interval change. IMPRESSION: NEGATIVE There is no mammographic evidence of malignancy. A 1 year screening mammogram is recommended. Based on the Tyrer Cuzick model (a risk assessment model) the patient's lifetime risk is 17.9% and her 10 year risk is 5.6%. According to the ACR, ACS, and NCCN guidelines, an annual breast MRI exam along with mammogram is recommended if the patient's lifetime risk is 20% or greater. This exam was interpreted at Station ID: [id number]. NOTE: For mammograms, a report in lay terms will be sent to the patient. Approximately 15% of breast malignancies will not be visualized mammographically. In the management of a palpable breast mass, a negative mammogram must not discourage biopsy of a clinically suspicious lesion. Electronically Signed By: Angel [email or web address]:08/26/2023 12:05:31 letter sent: Normal Exam ACR BI-RADS Category 1: Negative [id number]
== END ==
LOC: MAMMO 17:17
PROVIDERS: PCP Internal Medicine; Referring Provider Internal Medicine; Visit Provider Internal Medicine
DX: Z12.31 Encounter for screening mammogram for malignant neoplasm of breast (principal); Z80.3 Family history of malignant neoplasm of breast; R92.323 Mammographic fibroglandular density, bilateral breasts
CPT/HCPCS: 77063; 77067

== ENCOUNTER → 2024-08-04 13:15 | Outpatient (CLI) | payer OTHER, SELFPAY ==
[2022-09-14 22:16] VITALS: BMI 36.2
--- NOTE | 2024-08-04 13:17 | DI.MRI.S_ITS ---
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 COMPARISON: [facility], CR, XR FOOT 3+ VIEWS RIGHT, 12/03/2023, 9:18. FINDINGS: Image quality: Excellent. Bones and joints: Postsurgical changes are again seen at the 1st metatarsal head from bunionectomy and realignment osteotomy with a single metal screw and associated metal artifact. Moderate degenerative changes are seen at the 1st metatarsophalangeal joint and metatarsal sesamoid articulations with subchondral cystic changes and subchondral edema most prominent in the medial hallux sesamoid. Sesamoids are normally aligned. Soft tissues: Mild flexor hallucis longus tendinosis. The adjacent medial hallux sesamoid appears chronically remodeled and may mildly impinge upon the tendon. The remaining visualized flexor and extensor tendons appear intact, without tenosynovitis. The distal insertions of the peroneus brevis and longus tendons appear intact. The visualized plantar foot muscles demonstrate normal signal and bulk. The principal Lisfranc ligament appears intact. IMPRESSION: 1. Postsurgical changes at the distal 1st metatarsal. 2. Moderate degenerative changes at the 1st metatarsophalangeal joint and metatarsal-sesamoid articulations with subchondral cystic changes and subchondral edema. 3. Mild flexor hallucis longus tendinosis without definite tendon tearing. The medial hallux sesamoid is chronically remodeled and may impinge upon the adjacent flexor hallucis longus tendon. Approved by: Shelton Perla M.D. on 08/06/2024 at 20:05
== END ==
LOC: MRI 13:16
PROVIDERS: PCP Internal Medicine; Referring Provider Podiatrist; Visit Provider Podiatrist
DX: M77.51 Other enthesopathy of right foot and ankle (principal)
CPT/HCPCS: 73718

== ENCOUNTER → 2025-03-31 16:12 | Outpatient (CLI) | payer OTHER, SELFPAY ==
[2022-09-14 22:16] VITALS: BMI 36.2
--- NOTE | 2025-03-31 16:13 | DI.MG.S_ITS ---
MM screening mammo BI: 03/31/2025. BI-RADS: 1 CLINICAL: 54-year old female for bilateral screening mammogram. Tyrer-Cuzick lifetime risk of 9.2%. Current reported family history of breast cancer: mother. PRIOR EXAMS 08/24/2023, 08/12/2022, 07/26/2021, 06/30/2020. MAMMOGRAPHY TECHNIQUE: 2D and 3D (tomosynthesis) digital mammographic views obtained, with additional images as needed for full coverage. Current study was also evaluated with a Computer Aided Detection (CAD) system. DENSITY B. There are scattered areas of fibroglandular density. MAMMOGRAPHY FINDINGS Bilateral: No suspicious mass, asymmetry, microcalcification, or other abnormality seen. IMPRESSION: * No evidence of malignancy. RECOMMENDATIONS Bilateral * Annual screening mammography. OVERALL ASSESSMENT CATEGORY BI-RADS-1: Negative. The [employer] recommends annual screening mammography beginning at age 40 for women with average risk of breast cancer. ELECTRONICALLY SIGNED: Milla Smith M.D. on 04/02/2025 at 10:40:26 PM PT Interpreting Station ID: [id number]
== END ==
PROVIDERS: PCP Internal Medicine; Referring Provider Internal Medicine; Visit Provider Internal Medicine
DX: Z12.31 Encounter for screening mammogram for malignant neoplasm of breast (principal); Z80.3 Family history of malignant neoplasm of breast
CPT/HCPCS: 77063; 77067